=== PATIENT | female | born 1995 | race African-American/Black ===

== ENCOUNTER 2017-06-01 12:48 | Emergency (ER) | payer MEDICAID ==
[2017-06-01 13:15] LABS: HCG URINE NEGATIVE (NEGATIVE)
[2017-06-01 13:19] LABS: APPEARANCE HAZY (CLEAR); BACTERIA MODERATE /hpf (NONE SEEN); BILIRUBIN NEGATIVE (NEGATIVE); COLOR YELLOW (YELLOW); GLUCOSE NEGATIVE (NEGATIVE); KETONE NEGATIVE (NEGATIVE); LEUKOCYTE ESTERASE TRACE (NEGATIVE); MUCUS >1+ /lpf (NONE SEEN); NITRITE NEGATIVE (NEGATIVE); PROTEIN NEGATIVE (NEGATIVE); UROBILINOGEN NORMAL (NORMAL); WHITE CELLS - URINE 0-5 /hpf (0-5)
[2017-06-01 13:22] LABS: BASOPHILS 0.3 % (0-2); EOSINOPHILS 2.2 % (0-7); HEMATOCRIT 38.3 % (36.0-48.0); HEMOGLOBIN 12.8 g/dL (12-16); IMMATURE GRANULOCYTES 0.2 % (0-5); LYMPHOCYTES 36.7 % (15-50); MCH 27.1 pg (26.0-34.0); MCHC 33.4 g/dL (31.0-37.0); MCV 81.1 fL (80.0-100.0); MEAN PLATELET VOLUME 9.9 fL (7.4-10.4); MONOCYTES 7.8 % (2-11); NEUTROPHILS 52.8 % (40-80); PLATELET COUNT 269 10x3/uL (130-400); RBC 4.72 10x6/uL (4.00-5.40); RDW 15.5 % (11.5-14.5); WBC 6.3 10x3/uL (4.8-10.8)
[2017-06-01 13:44] LABS: CALC OSMOLALITY 276 mosm/kg (275-300); CALCIUM 9.1 mg/dL (8.5-10.1); CARBON DIOXIDE 24.9 mmol/L (21.0-32.0); CHLORIDE - SERUM 105 mmol/L (98-107); CREATININE - SERUM 0.7 mg/dL (0.6-1.3); GLUCOSE 105 mg/dL (74-106); POTASSIUM - SERUM 3.8 mmol/L (3.5-5.1); SODIUM 139 mmol/L (136-145); UREA NITROGEN 10 mg/dL (7-18); eGFR NON AFRICAN AMERICAN > 90 mL/min (90-120)
== END 2017-06-01 14:00 | disposition home or self-care (01) ==
LOC: D.ER 12:48
PROVIDERS: Emergency Medicine
DX: R11.10 Vomiting, unspecified (principal); K29.00 Acute gastritis without bleeding; I10 Essential (primary) hypertension; R10.9 Unspecified abdominal pain

== ENCOUNTER 2017-06-07 18:14 | Emergency (ER) | payer MEDICAID ==
[2017-06-07 19:11] LABS: BASOPHILS 0.4 % (0-2); EOSINOPHILS 3.2 % (0-7); HEMATOCRIT 36.6 % (36.0-48.0); LYMPHOCYTES 54.5 % (15-50); MCHC 32.8 g/dL (31.0-37.0); MCV 82.2 fL (80.0-100.0); MEAN PLATELET VOLUME 9.5 fL (7.4-10.4); MONOCYTES 8.1 % (2-11); NEUTROPHILS 33.8 % (40-80); PLATELET COUNT 264 10x3/uL (130-400); RBC 4.45 10x6/uL (4.00-5.40); RDW 15.7 % (11.5-14.5); WBC 7.2 10x3/uL (4.8-10.8)
[2017-06-07 19:50] LABS: HCG SERUM NEGATIVE (NEGATIVE)
[2017-06-07 20:01] LABS: ALBUMIN 3.1 g/dL (3.4-5.0); ALKALINE PHOSPHATASE 56 U/L (46-116); ALT (SGPT) 19 U/L (10-68); AMYLASE - SERUM 35 U/L (25-115); BILIRUBIN - TOTAL 0.33 mg/dL (0.2-1.3); CALC OSMOLALITY 275 mosm/kg (275-300); CALCIUM 8.5 mg/dL (8.5-10.1); CARBON DIOXIDE 24.5 mmol/L (21.0-32.0); CHLORIDE - SERUM 107 mmol/L (98-107); CREATININE - SERUM 0.8 mg/dL (0.6-1.3); GLUCOSE 97 mg/dL (74-106); LIPASE 83 U/L (73-393); POTASSIUM - SERUM 4.1 mmol/L (3.5-5.1); PROTEIN - SERUM 7.1 g/dL (6.4-8.2); SODIUM 139 mmol/L (136-145); UREA NITROGEN 8 mg/dL (7-18); eGFR NON AFRICAN AMERICAN > 90 mL/min (90-120)
[2017-06-07 21:45] LABS: COLOR YELLOW (YELLOW)
[2017-06-07 21:46] LABS: APPEARANCE SLT CLOUDY (CLEAR); BILIRUBIN NEGATIVE (NEGATIVE); GLUCOSE NEGATIVE (NEGATIVE); KETONE NEGATIVE (NEGATIVE); LEUKOCYTE ESTERASE NEGATIVE (NEGATIVE); NITRITE NEGATIVE (NEGATIVE); PROTEIN NEGATIVE (NEGATIVE); UROBILINOGEN NORMAL (NORMAL)
== END 2017-06-07 23:07 | disposition home or self-care (01) ==
LOC: D.ER 18:14
PROVIDERS: Emergency Medicine; Family Medicine
DX: R10.9 Unspecified abdominal pain (principal); K29.00 Acute gastritis without bleeding; I10 Essential (primary) hypertension; R63.0 Anorexia; R11.2 Nausea with vomiting, unspecified; F17.200 Nicotine dependence, unspecified, uncomplicated

== ENCOUNTER 2017-07-06 04:47 | Emergency (ER) | payer MEDICAID | END 2017-07-06 05:45 | disposition home or self-care (01) | LOC: D.ER 04:47 | DX: R10.2 Pelvic and perineal pain (principal); I10 Essential (primary) hypertension; F17.200 Nicotine dependence, unspecified, uncomplicated ==

== ENCOUNTER 2017-07-07 20:40 | Emergency (ER) | payer MEDICAID ==
[2017-07-07 21:36] LABS: HCG URINE NEGATIVE (NEGATIVE)
[2017-07-07 21:43] LABS: APPEARANCE HAZY (CLEAR); BACTERIA MANY /hpf (NONE SEEN); BILIRUBIN NEGATIVE (NEGATIVE); COLOR YELLOW (YELLOW); GLUCOSE NEGATIVE (NEGATIVE); KETONE NEGATIVE (NEGATIVE); LEUKOCYTE ESTERASE TRACE (NEGATIVE); MUCUS >1+ /lpf (NONE SEEN); NITRITE NEGATIVE (NEGATIVE); PROTEIN NEGATIVE (NEGATIVE); SPECIFIC GRAVITY 1.015 (1.005-1.020); WHITE CELLS - URINE 0-5 /hpf (0-5)
[2017-07-07 21:53] LABS: ALBUMIN 2.9 g/dL (3.4-5.0); ALKALINE PHOSPHATASE 59 U/L (46-116); ALT (SGPT) 19 U/L (10-68); BILIRUBIN - TOTAL 0.23 mg/dL (0.2-1.3); CALC OSMOLALITY 283 mosm/kg (275-300); CALCIUM 8.6 mg/dL (8.5-10.1); CARBON DIOXIDE 26.8 mmol/L (21.0-32.0); CHLORIDE - SERUM 108 mmol/L (98-107); CREATININE - SERUM 0.8 mg/dL (0.6-1.3); GLUCOSE 115 mg/dL (74-106); POTASSIUM - SERUM 3.5 mmol/L (3.5-5.1); PROTEIN - SERUM 6.6 g/dL (6.4-8.2); SODIUM 143 mmol/L (136-145); UREA NITROGEN 8 mg/dL (7-18); eGFR NON AFRICAN AMERICAN > 90 mL/min (90-120)
[2017-07-07 22:14] LABS: BASOPHILS 0.3 % (0-2); EOSINOPHILS 4.6 % (0-7); HEMOGLOBIN 12.1 g/dL (12-16); IMMATURE GRANULOCYTES 0.1 % (0-5); LYMPHOCYTES 44.1 % (15-50); MCH 27.2 pg (26.0-34.0); MCHC 32.7 g/dL (31.0-37.0); MCV 83.1 fL (80.0-100.0); MONOCYTES 7.4 % (2-11); NEUTROPHILS 43.5 % (40-80); PLATELET COUNT 216 10x3/uL (130-400); RBC 4.45 10x6/uL (4.00-5.40); WBC 7.6 10x3/uL (4.8-10.8)
== END 2017-07-07 22:16 | disposition home or self-care (01) ==
LOC: D.ER 20:40
PROVIDERS: Emergency Medicine
DX: N73.0 Acute parametritis and pelvic cellulitis (principal); F17.200 Nicotine dependence, unspecified, uncomplicated; I10 Essential (primary) hypertension

== ENCOUNTER 2017-10-03 17:00 | Emergency (ER) | payer MEDICAID ==
[2017-10-03 17:43] LABS: HEMATOCRIT 38.2 % (36.0-48.0); HEMOGLOBIN 12.7 g/dL (12-16); MCHC 33.2 g/dL (31.0-37.0); MCV 81.1 fL (80.0-100.0); MEAN PLATELET VOLUME 9.3 fL (7.4-10.4); PLATELET COUNT 245 10x3/uL (130-400); RBC 4.71 10x6/uL (4.00-5.40); RDW 15.1 % (11.5-14.5); WBC 6.5 10x3/uL (4.8-10.8)
[2017-10-03 18:00] LABS: ALBUMIN 3.2 g/dL (3.4-5.0); ALKALINE PHOSPHATASE 62 U/L (46-116); ALT (SGPT) 18 U/L (10-68); BILIRUBIN - TOTAL 0.16 mg/dL (0.2-1.3); CALC OSMOLALITY 273 mosm/kg (275-300); CALCIUM 8.8 mg/dL (8.5-10.1); CARBON DIOXIDE 25.6 mmol/L (21.0-32.0); CHLORIDE - SERUM 105 mmol/L (98-107); CREATININE - SERUM 0.9 mg/dL (0.6-1.3); GLUCOSE 109 mg/dL (74-106); POTASSIUM - SERUM 3.9 mmol/L (3.5-5.1); PROTEIN - SERUM 7.3 g/dL (6.4-8.2); SODIUM 137 mmol/L (136-145); UREA NITROGEN 10 mg/dL (7-18); eGFR NON AFRICAN AMERICAN 81 mL/min (90-120)
[2017-10-03 18:06] LABS: HCG SERUM NEGATIVE (NEGATIVE)
[2017-10-03 18:15] LABS: EOSINOPHILS 6 % (0-7); LYMPHOCYTES 58 % (15-50); MONOCYTES 1 % (2-11); NEUTROPHILS 35 % (40-80); PLATELET ESTIMATE NORMAL
[2017-10-03 19:28] LABS: APPEARANCE HAZY (CLEAR); BILIRUBIN NEGATIVE (NEGATIVE); COLOR YELLOW (YELLOW); GLUCOSE NEGATIVE (NEGATIVE); KETONE NEGATIVE (NEGATIVE); NITRITE NEGATIVE (NEGATIVE); PROTEIN NEGATIVE (NEGATIVE); UROBILINOGEN NORMAL (NORMAL)
[2017-10-03 19:29] LABS: BACTERIA FEW /hpf (NONE SEEN); MUCUS <1+ /lpf (NONE SEEN); RED CELLS - URINE OCC /hpf (0-5); WHITE CELLS - URINE 0-5 /hpf (0-5)
== END 2017-10-03 20:07 | disposition home or self-care (01) ==
LOC: D.ER 17:00
PROVIDERS: Emergency Medicine
DX: N39.0 Urinary tract infection, site not specified (principal); Z20.828 Contact with and (suspected) exposure to other viral communicable diseases

== ENCOUNTER 2017-10-18 20:26 | Emergency (ER) | payer MEDICAID ==
[2017-10-18 21:03] LABS: APPEARANCE HAZY (CLEAR); BILIRUBIN NEGATIVE (NEGATIVE); COLOR YELLOW (YELLOW); GLUCOSE NEGATIVE (NEGATIVE); KETONE NEGATIVE (NEGATIVE); NITRITE NEGATIVE (NEGATIVE); PROTEIN NEGATIVE (NEGATIVE); UROBILINOGEN NORMAL (NORMAL)
[2017-10-18 21:05] LABS: AMORPHOUS SEDIMENT <1+ /lpf (NONE SEEN); BACTERIA MODERATE /hpf (NONE SEEN); MUCUS >1+ /lpf (NONE SEEN); RED CELLS - URINE OCC /hpf (0-5)
[2017-10-18 23:20] LABS: HCG URINE NEGATIVE (NEGATIVE)
== END 2017-10-19 00:18 | disposition home or self-care (01) ==
LOC: D.ER 20:26
PROVIDERS: Emergency Medicine; Physician Assistant
DX: R10.2 Pelvic and perineal pain (principal); R30.0 Dysuria; N89.8 Other specified noninflammatory disorders of vagina; F17.200 Nicotine dependence, unspecified, uncomplicated

== ENCOUNTER 2017-10-26 21:44 | Emergency (ER) | payer MEDICAID | END 2017-10-26 23:12 | disposition home or self-care (01) | LOC: D.ER 21:44 | DX: S46.912A Strain of unspecified muscle, fascia and tendon at shoulder and upper arm level, left arm, initial encounter (principal); X50.9XXA Other and unspecified overexertion or strenuous movements or postures, initial encounter; Y93.89 Activity, other specified; Y92.019 Unspecified place in single-family (private) house as the place of occurrence of the external cause ==

== ENCOUNTER 2017-11-12 18:53 | Emergency (ER) | payer MEDICAID ==
[2017-11-12 19:25] LABS: APPEARANCE HAZY (CLEAR); BILIRUBIN NEGATIVE (NEGATIVE); COLOR YELLOW (YELLOW); GLUCOSE NEGATIVE (NEGATIVE); KETONE NEGATIVE (NEGATIVE); NITRITE NEGATIVE (NEGATIVE); PROTEIN NEGATIVE (NEGATIVE); UROBILINOGEN NORMAL (NORMAL)
== END 2017-11-12 20:48 | disposition home or self-care (01) ==
LOC: D.ER 18:53
PROVIDERS: Family Medicine
DX: N76.0 Acute vaginitis (principal); F17.200 Nicotine dependence, unspecified, uncomplicated

== ENCOUNTER 2017-12-21 09:15 | Emergency (ER) | payer MEDICAID ==
[2017-12-21 09:49] LABS: BASOPHILS 0.2 % (0-2); EOSINOPHILS 2.1 % (0-7); HEMATOCRIT 38.1 % (36.0-48.0); HEMOGLOBIN 12.6 g/dL (12-16); IMMATURE GRANULOCYTES 0.1 % (0-5); LYMPHOCYTES 33.9 % (15-50); MCH 27.1 pg (26.0-34.0); MCHC 33.1 g/dL (31.0-37.0); MCV 81.9 fL (80.0-100.0); MEAN PLATELET VOLUME 9.9 fL (7.4-10.4); MONOCYTES 6.7 % (2-11); PLATELET COUNT 259 10x3/uL (130-400); RBC 4.65 10x6/uL (4.00-5.40); RDW 15.2 % (11.5-14.5); WBC 8.6 10x3/uL (4.8-10.8)
[2017-12-21 11:39] LABS: HCG URINE NEGATIVE (NEGATIVE)
[2017-12-21 11:40] LABS: APPEARANCE CLEAR (CLEAR); BILIRUBIN NEGATIVE (NEGATIVE); COLOR YELLOW (YELLOW); GLUCOSE NEGATIVE (NEGATIVE); KETONE NEGATIVE (NEGATIVE); NITRITE NEGATIVE (NEGATIVE); PROTEIN NEGATIVE (NEGATIVE); SPECIFIC GRAVITY 1.015 (1.005-1.020); UROBILINOGEN NORMAL (NORMAL)
== END 2017-12-21 12:14 | disposition home or self-care (01) ==
LOC: D.ER 09:15
PROVIDERS: Emergency Medicine; Physician Assistant
DX: F43.22 Adjustment disorder with anxiety (principal); R10.84 Generalized abdominal pain; M79.1 Myalgia; F17.200 Nicotine dependence, unspecified, uncomplicated

== ENCOUNTER 2017-12-27 11:34 | Emergency (ER) | payer MEDICAID | END 2017-12-27 13:50 | disposition left against medical advice (07) | LOC: D.ER 11:34 | DX: R10.30 Lower abdominal pain, unspecified (principal) ==

== ENCOUNTER 2018-05-04 17:40 | Emergency (ER) | payer MEDICAID ==
[~2018-05-04] VITALS: Ht 162.6 cm; Wt 95.5 kg
[2018-05-04 17:51] VITALS: BP 119/72; Ht 162.6 cm; Wt 95.5 kg
[2018-05-04 18:59] LABS: BASOPHILS 0.4 % (0-2); EOSINOPHILS 1.7 % (0-7); HEMATOCRIT 36.8 % (36.0-48.0); HEMOGLOBIN 12.4 g/dL (12-16); IMMATURE GRANULOCYTES 0.1 % (0-5); LYMPHOCYTES 46.2 % (15-50); MCH 27.8 pg (26.0-34.0); MCHC 33.7 g/dL (31.0-37.0); MCV 82.5 fL (80.0-100.0); MEAN PLATELET VOLUME 9.8 fL (7.4-10.4); MONOCYTES 7.1 % (2-11); NEUTROPHILS 44.5 % (40-80); PLATELET COUNT 237 10x3/uL (130-400); RBC 4.46 10x6/uL (4.00-5.40)
[2018-05-04 19:06] LABS: APPEARANCE CLEAR (CLEAR); BILIRUBIN NEGATIVE (NEGATIVE); COLOR YELLOW (YELLOW); GLUCOSE NEGATIVE (NEGATIVE); KETONE NEGATIVE (NEGATIVE); NITRITE NEGATIVE (NEGATIVE); PROTEIN NEGATIVE (NEGATIVE); SPECIFIC GRAVITY 1.015 (1.005-1.020); UROBILINOGEN NORMAL (NORMAL)
[2018-05-04 19:09] LABS: WHITE CELLS - URINE 0-5 /hpf (0-5)
[2018-05-04 19:11] LABS: BACTERIA MANY /hpf (NONE SEEN); RED CELLS - URINE 0-5 /hpf (0-5)
[2018-05-04 19:17] LABS: ALBUMIN 3.2 g/dL (3.4-5.0); ALKALINE PHOSPHATASE 67 U/L (46-116); ALT (SGPT) 17 U/L (10-68); BILIRUBIN - TOTAL 0.18 mg/dL (0.2-1.3); CALC OSMOLALITY 275 mosm/kg (275-300); CARBON DIOXIDE 26.1 mmol/L (21.0-32.0); CHLORIDE - SERUM 106 mmol/L (98-107); CREATININE - SERUM 0.9 mg/dL (0.6-1.3); GLUCOSE 105 mg/dL (74-106); POTASSIUM - SERUM 3.8 mmol/L (3.5-5.1); PROTEIN - SERUM 7.3 g/dL (6.4-8.2); SODIUM 138 mmol/L (136-145); UREA NITROGEN 12 mg/dL (7-18); eGFR NON AFRICAN AMERICAN 81 mL/min (90-120)
== END 2018-05-04 21:34 | disposition left against medical advice (07) ==
LOC: D.ER 17:40
PROVIDERS: Family Medicine
DX: R51 Headache (principal)

== ENCOUNTER 2018-05-11 17:25 | Emergency (ER) | payer MEDICAID ==
[~2018-05-11] VITALS: Ht 162.6 cm; Wt 95.5 kg
[2018-05-11 17:29] VITALS: Ht 162.6 cm; Wt 95.5 kg
[2018-05-11 17:57] LABS: APPEARANCE HAZY (CLEAR); COLOR YELLOW (YELLOW); GLUCOSE NEGATIVE (NEGATIVE); KETONE NEGATIVE (NEGATIVE); NITRITE POSITIVE (NEGATIVE); PROTEIN NEGATIVE (NEGATIVE); UROBILINOGEN NORMAL (NORMAL)
[2018-05-11 17:58] LABS: BILIRUBIN NEGATIVE (NEGATIVE); RED CELLS - URINE 0-5 /hpf (0-5); WHITE CELLS - URINE 0-5 /hpf (0-5)
[2018-05-11 17:59] LABS: BACTERIA MANY /hpf (NONE SEEN)
[2018-05-11 18:08] LABS: HCG URINE NEGATIVE (NEGATIVE)
[2018-05-11 18:08] LABS: BASOPHILS 0.2 % (0-2); EOSINOPHILS 1.1 % (0-7); HEMATOCRIT 35.5 % (36.0-48.0); HEMOGLOBIN 11.9 g/dL (12-16); IMMATURE GRANULOCYTES 0.1 % (0-5); LYMPHOCYTES 44.6 % (15-50); MCH 27.6 pg (26.0-34.0); MCHC 33.5 g/dL (31.0-37.0); MCV 82.4 fL (80.0-100.0); MEAN PLATELET VOLUME 9.9 fL (7.4-10.4); MONOCYTES 7.1 % (2-11); NEUTROPHILS 46.9 % (40-80); PLATELET COUNT 240 10x3/uL (130-400); RBC 4.31 10x6/uL (4.00-5.40); WBC 8.6 10x3/uL (4.8-10.8)
[2018-05-11 18:23] LABS: ALKALINE PHOSPHATASE 60 U/L (46-116); ALT (SGPT) 16 U/L (10-68); BILIRUBIN - TOTAL 0.18 mg/dL (0.2-1.3); CALC OSMOLALITY 273 mosm/kg (275-300); CALCIUM 8.7 mg/dL (8.5-10.1); CARBON DIOXIDE 27.4 mmol/L (21.0-32.0); CHLORIDE - SERUM 106 mmol/L (98-107); CREATININE - SERUM 0.8 mg/dL (0.6-1.3); GLUCOSE 96 mg/dL (74-106); POTASSIUM - SERUM 3.6 mmol/L (3.5-5.1); PROTEIN - SERUM 6.8 g/dL (6.4-8.2); SODIUM 138 mmol/L (136-145); UREA NITROGEN 8 mg/dL (7-18); eGFR NON AFRICAN AMERICAN > 90 mL/min (90-120)
[2018-05-11] MEDS ORDERED: MACROBID100 MG PO (18:49)
[2018-05-11] MEDS ORDERED: ZOFRAN4 MG PO (18:49)
[2018-05-11 19:20] VITALS: BP 122/78
== END 2018-05-11 19:20 | disposition home or self-care (01) ==
LOC: D.ER 17:25
PROVIDERS: Emergency Medicine
DX: N39.0 Urinary tract infection, site not specified (principal); I10 Essential (primary) hypertension; F17.200 Nicotine dependence, unspecified, uncomplicated

== ENCOUNTER 2018-11-02 10:40 | Emergency (ER) | payer MEDICAID ==
[~2018-11-02] VITALS: Ht 162.6 cm; Wt 100.0 kg
[~2018-11-02 10:40] MED LIST: MACROBID100 MG PO; ZOFRAN4 MG PO
[2018-11-02 10:41] VITALS: Ht 162.6 cm; Wt 100.0 kg
[2018-11-02 11:01] LABS: BASOPHILS 0.4 % (0-2); HEMATOCRIT 37.6 % (36.0-48.0); HEMOGLOBIN 12.6 g/dL (12-16); IMMATURE GRANULOCYTES 0.1 % (0-5); LYMPHOCYTES 29.6 % (15-50); MCH 27.9 pg (26.0-34.0); MCHC 33.5 g/dL (31.0-37.0); MCV 83.2 fL (80.0-100.0); MEAN PLATELET VOLUME 9.6 fL (7.4-10.4); MONOCYTES 9.5 % (2-11); NEUTROPHILS 58.4 % (40-80); PLATELET COUNT 261 10x3/uL (130-400); RBC 4.52 10x6/uL (4.00-5.40); RDW 14.8 % (11.5-14.5); WBC 8.4 10x3/uL (4.8-10.8)
[2018-11-02 11:17] LABS: ALKALINE PHOSPHATASE 57 U/L (46-116); ALT (SGPT) 18 U/L (10-68); BILIRUBIN - TOTAL 0.28 mg/dL (0.2-1.3); CALC OSMOLALITY 277 mosm/kg (275-300); CARBON DIOXIDE 24.1 mmol/L (21.0-32.0); CHLORIDE - SERUM 106 mmol/L (98-107); CREATININE - SERUM 0.7 mg/dL (0.6-1.3); GLUCOSE 97 mg/dL (74-106); POTASSIUM - SERUM 3.8 mmol/L (3.5-5.1); PROTEIN - SERUM 7.3 g/dL (6.4-8.2); SODIUM 140 mmol/L (136-145); UREA NITROGEN 9 mg/dL (7-18); eGFR NON AFRICAN AMERICAN > 90 mL/min (90-120)
[2018-11-02 12:27] VITALS: BP 125/77
== END 2018-11-02 12:28 | disposition home or self-care (01) ==
LOC: D.ER 10:40
PROVIDERS: Family Medicine
DX: R50.9 Fever, unspecified (principal); R05 Cough; J02.0 Streptococcal pharyngitis; R51 Headache; M79.18 Myalgia, other site; I10 Essential (primary) hypertension; F17.200 Nicotine dependence, unspecified, uncomplicated

== ENCOUNTER 2018-11-30 13:17 | Emergency (ER) | payer MEDICAID ==
[~2018-11-30] VITALS: Ht 162.6 cm; Wt 95.5 kg
[2018-11-30 13:28] VITALS: Ht 162.6 cm; Wt 95.5 kg
[2018-11-30 13:56] LABS: HCG URINE NEGATIVE (NEGATIVE)
[2018-11-30 13:59] LABS: APPEARANCE HAZY (CLEAR); BILIRUBIN NEGATIVE (NEGATIVE); COLOR YELLOW (YELLOW); GLUCOSE NEGATIVE (NEGATIVE); KETONE NEGATIVE (NEGATIVE); NITRITE NEGATIVE (NEGATIVE); PROTEIN NEGATIVE (NEGATIVE); SPECIFIC GRAVITY 1.025 (1.005-1.020)
[2018-11-30 14:03] LABS: BACTERIA MANY /hpf (NONE SEEN); EPITHELIAL CELLS 0-5 /hpf (0-5); MUCUS >1+ /lpf (NONE SEEN); RED CELLS - URINE 0-5 /hpf (0-5); WHITE CELLS - URINE RARE /hpf (0-5)
[2018-11-30 15:40] VITALS: BP 110/73
== END 2018-11-30 15:40 | disposition home or self-care (01) ==
LOC: D.ER 13:17
PROVIDERS: Emergency Medicine
DX: R30.0 Dysuria (principal); N76.0 Acute vaginitis; B96.89 Other specified bacterial agents as the cause of diseases classified elsewhere; N94.89 Other specified conditions associated with female genital organs and menstrual cycle; R10.2 Pelvic and perineal pain

== ENCOUNTER 2019-02-28 18:16 | Emergency (ER) | payer MEDICAID ==
[~2019-02-28] VITALS: Ht 162.6 cm; Wt 95.5 kg
[2019-02-28 18:36] VITALS: Ht 162.6 cm; Wt 95.5 kg
[2019-02-28 19:08] LABS: BASOPHILS 0.3 % (0-2); EOSINOPHILS 1.7 % (0-7); HEMATOCRIT 37.2 % (36.0-48.0); HEMOGLOBIN 12.6 g/dL (12-16); IMMATURE GRANULOCYTES 0.1 % (0-5); LYMPHOCYTES 48.3 % (15-50); MCH 28.1 pg (26.0-34.0); MCHC 33.9 g/dL (31.0-37.0); MEAN PLATELET VOLUME 9.2 fL (7.4-10.4); MONOCYTES 7.9 % (2-11); NEUTROPHILS 41.7 % (40-80); PLATELET COUNT 256 10x3/uL (130-400); RBC 4.48 10x6/uL (4.00-5.40); RDW 15.1 % (11.5-14.5); WBC 7.3 10x3/uL (4.8-10.8)
[2019-02-28 19:13] LABS: APPEARANCE CLEAR (CLEAR); BILIRUBIN NEGATIVE (NEGATIVE); COLOR YELLOW (YELLOW); GLUCOSE NEGATIVE (NEGATIVE); KETONE NEGATIVE (NEGATIVE); NITRITE NEGATIVE (NEGATIVE); PROTEIN NEGATIVE (NEGATIVE); UROBILINOGEN NORMAL (NORMAL)
[2019-02-28 19:25] LABS: ALBUMIN 2.7 g/dL (3.4-5.0); ALKALINE PHOSPHATASE 50 U/L (46-116); ALT (SGPT) 20 U/L (10-68); CALC OSMOLALITY 275 mosm/kg (275-300); CALCIUM 8.8 mg/dL (8.5-10.1); CHLORIDE - SERUM 107 mmol/L (98-107); CREATININE - SERUM 0.8 mg/dL (0.6-1.3); GLUCOSE 83 mg/dL (74-106); POTASSIUM - SERUM 3.8 mmol/L (3.5-5.1); PROTEIN - SERUM 6.1 g/dL (6.4-8.2); SODIUM 140 mmol/L (136-145); UREA NITROGEN 7 mg/dL (7-18); eGFR NON AFRICAN AMERICAN > 90 mL/min (90-120)
[2019-02-28 19:37] LABS: HCG SERUM POSITIVE (NEGATIVE)
[2019-02-28 22:11] VITALS: BP 122/73
== END 2019-02-28 22:11 | disposition home or self-care (01) ==
LOC: D.ER 18:16
PROVIDERS: Emergency Medicine
DX: Z33.1 Pregnant state, incidental (principal); R11.0 Nausea

== ENCOUNTER 2019-03-19 15:30 | Emergency (ER) | payer MEDICAID ==
[~2019-03-19] VITALS: Ht 162.6 cm; Wt 95.5 kg
[2019-03-19 15:31] VITALS: Ht 162.6 cm; Wt 95.5 kg
[2019-03-19 15:53] LABS: BASOPHILS 0.2 % (0-2); EOSINOPHILS 0.8 % (0-7); HEMATOCRIT 36.3 % (36.0-48.0); HEMOGLOBIN 12.5 g/dL (12-16); IMMATURE GRANULOCYTES 0.3 % (0-5); LYMPHOCYTES 41.3 % (15-50); MCH 28.3 pg (26.0-34.0); MCHC 34.4 g/dL (31.0-37.0); MCV 82.1 fL (80.0-100.0); MEAN PLATELET VOLUME 9.5 fL (7.4-10.4); MONOCYTES 9.9 % (2-11); NEUTROPHILS 47.5 % (40-80); PLATELET COUNT 237 10x3/uL (130-400); RBC 4.42 10x6/uL (4.00-5.40); RDW 14.2 % (11.5-14.5); WBC 6.6 10x3/uL (4.8-10.8)
[2019-03-19 16:34] LABS: ALBUMIN 2.8 g/dL (3.4-5.0); ALKALINE PHOSPHATASE 41 U/L (46-116); ALT (SGPT) 17 U/L (10-68); BILIRUBIN - TOTAL 0.21 mg/dL (0.2-1.3); CALCIUM 8.7 mg/dL (8.5-10.1); CARBON DIOXIDE 18.9 mmol/L (21.0-32.0); CHLORIDE - SERUM 105 mmol/L (98-107); CREATININE - SERUM 0.8 mg/dL (0.6-1.3); HCG - QUANTITATIVE (MATERNAL) 146873 mIU/mL; PROTEIN - SERUM 6.4 g/dL (6.4-8.2); SODIUM 136 mmol/L (136-145); UREA NITROGEN 7 mg/dL (7-18); eGFR NON AFRICAN AMERICAN > 90 mL/min (90-120)
[2019-03-19 16:41] LABS: CALC OSMOLALITY 271 mosm/kg (275-300); GLUCOSE 127 mg/dL (74-106)
[2019-03-19 16:43] LABS: POTASSIUM - SERUM 2.8 mmol/L (3.5-5.1)
[2019-03-19 17:00] LABS: APPEARANCE HAZY (CLEAR); BILIRUBIN NEGATIVE (NEGATIVE); COLOR YELLOW (YELLOW); GLUCOSE NEGATIVE (NEGATIVE); KETONE NEGATIVE (NEGATIVE); NITRITE NEGATIVE (NEGATIVE); PROTEIN NEGATIVE (NEGATIVE); SPECIFIC GRAVITY 1.015 (1.005-1.020); UROBILINOGEN NORMAL (NORMAL)
[2019-03-19 17:01] LABS: BACTERIA MANY /hpf (NONE SEEN); MUCUS <1+ /lpf (NONE SEEN); RED CELLS - URINE 0-5 /hpf (0-5); WHITE CELLS - URINE 0-5 /hpf (0-5)
[2019-03-19] MEDS ORDERED: ONDANSETRON8 MG/TAB PO (17:50)
[2019-03-19] MEDS ORDERED: FLAGYL500 MG PO (17:53)
[2019-03-19 18:06] VITALS: BP 118/76
== END 2019-03-19 18:07 | disposition home or self-care (01) ==
LOC: D.ER 15:30
PROVIDERS: Family Medicine
DX: O26.891 Other specified pregnancy related conditions, first trimester (principal); Z3A.09 9 weeks gestation of pregnancy; F41.9 Anxiety disorder, unspecified; E87.6 Hypokalemia

== ENCOUNTER 2019-07-07 17:35 | Outpatient (CLI) | payer MEDICAID ==
[2019-03-19 15:31] VITALS: BMI 36.1
[~2019-07-07 17:35] MED LIST changes: +FLAGYL500 MG PO; +ONDANSETRON8 MG/TAB PO
[2019-07-07 18:32] LABS: APPEARANCE CLEAR (CLEAR); BILIRUBIN NEGATIVE (NEGATIVE); COLOR YELLOW (YELLOW); GLUCOSE NEGATIVE (NEGATIVE); KETONE NEGATIVE (NEGATIVE); NITRITE NEGATIVE (NEGATIVE); PROTEIN NEGATIVE (NEGATIVE); SPECIFIC GRAVITY 1.015 (1.005-1.020)
== END 2019-07-07 18:50 ==
LOC: D.LDO 17:35
PROVIDERS: ATTEND Obstetrics & Gynecology
DX: O26.892 Other specified pregnancy related conditions, second trimester (principal); Z3A.24 24 weeks gestation of pregnancy; J00 Acute nasopharyngitis [common cold]

== ENCOUNTER 2019-08-04 23:59 | Outpatient (CLI) | payer MEDICAID ==
[2019-03-19 15:31] VITALS: BMI 36.1
[2019-08-05 01:29] LABS: APPEARANCE CLEAR (CLEAR); BILIRUBIN NEGATIVE (NEGATIVE); COLOR YELLOW (YELLOW); GLUCOSE NEGATIVE (NEGATIVE); KETONE NEGATIVE (NEGATIVE); NITRITE NEGATIVE (NEGATIVE); PROTEIN NEGATIVE (NEGATIVE); SPECIFIC GRAVITY 1.005 (1.005-1.020); UROBILINOGEN NORMAL (NORMAL)
[2019-09-29 19:37] VITALS: BMI 32.7
== END 2019-08-05 03:20 | disposition left against medical advice (07) ==
LOC: D.LD 23:59 → D.LDO 23:59
PROVIDERS: ATTEND Student in an Organized Health Care Education/Training Program
DX: O26.893 Other specified pregnancy related conditions, third trimester (principal); R10.9 Unspecified abdominal pain; Z3A.28 28 weeks gestation of pregnancy

== ENCOUNTER 2019-08-26 23:10 | Inpatient (IN) | payer MEDICAID ==
[2019-03-19 15:31] VITALS: BMI 36.1
[2019-08-27 00:21] LABS: UDS - AMPHET NEGATIVE QUAL (NEGATIVE); UDS - BARB NEGATIVE QUAL (NEGATIVE); UDS - BENZO NEGATIVE QUAL (NEGATIVE); UDS - COCAINE NEGATIVE QUAL (NEGATIVE); UDS - OPIATE NEGATIVE QUAL (NEGATIVE); UDS - PCP NEGATIVE QUAL (NEGATIVE); UDS - THC POSITIVE QUAL (NEGATIVE)
[2019-08-27 00:22] LABS: APPEARANCE SL CLDY (CLEAR); BILIRUBIN NEGATIVE (NEGATIVE); COLOR YELLOW (YELLOW); GLUCOSE NEGATIVE (NEGATIVE); KETONE NEGATIVE (NEGATIVE); NITRITE NEGATIVE (NEGATIVE); PROTEIN NEGATIVE (NEGATIVE); SPECIFIC GRAVITY 1.005 (1.005-1.020); UROBILINOGEN NORMAL (NORMAL)
[2019-08-27 00:24] LABS: BACTERIA MODERATE /hpf (NEGATIVE); EPITHELIAL CELLS 0-5 /hpf (0-5); RED CELLS - URINE 0-5 /hpf (0-5)
[2019-08-27 03:35] LABS: BASOPHILS 0.1 % (0-2); EOSINOPHILS 1.3 % (0-7); HEMATOCRIT 28.9 % (36.0-48.0); HEMOGLOBIN 9.4 g/dL (12-16); IMMATURE GRANULOCYTES 0.2 % (0-5); LYMPHOCYTES 30.5 % (15-50); MCH 27.3 pg (26.0-34.0); MCHC 32.5 g/dL (31.0-37.0); MONOCYTES 8.2 % (2-11); NEUTROPHILS 59.7 % (40-80); PLATELET COUNT 265 10x3/uL (130-400); RBC 3.44 10x6/uL (4.00-5.40); RDW 15.4 % (11.5-14.5); WBC 12.4 10x3/uL (4.8-10.8)
[2019-08-27 03:44] LABS: CALC OSMOLALITY 274 mosm/kg (275-300); CALCIUM 8.7 mg/dL (8.5-10.1); CARBON DIOXIDE 21.6 mmol/L (21.0-32.0); CHLORIDE - SERUM 108 mmol/L (98-107); CREATININE - SERUM 0.5 mg/dL (0.6-1.3); GLUCOSE 92 mg/dL (74-106); POTASSIUM - SERUM 3.3 mmol/L (3.5-5.1); SODIUM 139 mmol/L (136-145); UREA NITROGEN 4 mg/dL (7-18); eGFR NON AFRICAN AMERICAN > 90 mL/min (90-120)
[2019-08-27 03:50] LABS: ALBUMIN 2.3 g/dL (3.4-5.0); ALKALINE PHOSPHATASE 116 U/L (46-116); ALT (SGPT) 15 U/L (10-68); AMYLASE - SERUM 40 U/L (25-115); BILIRUBIN - TOTAL 0.24 mg/dL (0.2-1.3); LIPASE 59 U/L (73-393); PROTEIN - SERUM 6.3 g/dL (6.4-8.2)
[2019-09-29 19:37] VITALS: BMI 32.7
== END 2019-08-27 08:00 | disposition home or self-care (01) | DRG 832 ==
LOC: D.LD 23:10
PROVIDERS: ADMIT Student in an Organized Health Care Education/Training Program; ATTEND Student in an Organized Health Care Education/Training Program
DX: O21.2 Late vomiting of pregnancy (principal); O47.03 False labor before 37 completed weeks of gestation, third trimester; Z3A.31 31 weeks gestation of pregnancy; Z37.0 Single live birth

== ENCOUNTER 2019-09-18 10:42 | Inpatient (IN) | payer MEDICAID ==
[~2019-09-18] VITALS: Ht 162.6 cm; Wt 99.8 kg
[2019-09-18] MEDS ORDERED: REGLAN10 MG PO (10:48)
[2019-09-18 11:44] LABS: HEMOGLOBIN 9.4 g/dL (12-16); MCH 27.3 pg (26.0-34.0); MCHC 32.4 g/dL (31.0-37.0); MCV 84.3 fL (80.0-100.0); MEAN PLATELET VOLUME 9.1 fL (7.4-10.4); RBC 3.44 10x6/uL (4.00-5.40); RDW 15.7 % (11.5-14.5); WBC 11.2 10x3/uL (4.8-10.8)
[2019-09-18 12:28] LABS: APPEARANCE CLOUDY (CLEAR); BACTERIA MODERATE /hpf (NEGATIVE); BILIRUBIN NEGATIVE (NEGATIVE); COLOR YELLOW (YELLOW); EPITHELIAL CELLS 0-5 /hpf (0-5); GLUCOSE NEGATIVE (NEGATIVE); KETONE SMALL mg/dL (NEGATIVE); MUCUS <1+ /lpf (NONE SEEN); NITRITE NEGATIVE (NEGATIVE); PROTEIN NEGATIVE (NEGATIVE); RED CELLS - URINE RARE /hpf (0-5); SPECIFIC GRAVITY 1.005 (1.005-1.020); WHITE CELLS - URINE 0-5 /hpf (NEGATIVE)
[2019-09-18 12:57] VITALS: BP 122/76; Ht 162.6 cm; Wt 99.8 kg
[2019-09-18 13:15] LABS: UDS - AMPHET NEGATIVE QUAL (NEGATIVE); UDS - BARB NEGATIVE QUAL (NEGATIVE); UDS - BENZO NEGATIVE QUAL (NEGATIVE); UDS - COCAINE NEGATIVE QUAL (NEGATIVE); UDS - OPIATE NEGATIVE QUAL (NEGATIVE); UDS - PCP NEGATIVE QUAL (NEGATIVE); UDS - THC POSITIVE QUAL (NEGATIVE)
--- NOTE | 2019-09-18 15:03 | NUR ---
1451 VIABLE BABY GIRL DELIVERED, CORD BLOOD AND GASES DONE AND SENT OUT, ELIE.
[2019-09-18 16:56] VITALS: BP 116/84
--- NOTE | 2019-09-18 17:00 | NUR ---
REC'D PT BACK FROM RECOVERY POST OP . PT AA&O X4. PT HAS A PIV TO RT WRIST/FOREARM AREA W/NS W/20 UNITS PITOCIN INFUSING AT SLOW RATE VIA GRAVITY. IV LINE PLACED ON PUMP TP INFUSE AT 125ML/HR. REPORT RECIEVED FROM MILY RECOVERY NURSE. POSTOP VITALS OBTAINED. SERIAL BP STARTED. PT HAD A REPEAT . LOW TRANSVERSE INCISION C/D/I W/LARGE ABD DRESSING. NO DRAINAGE NOTED. CONROY CATH IN PLACE AND DRAINING VIA GRAVITY AT BEDSIDE.SCD WRAPS IN PLACED BILATERALLY. CONNECTED TO PUMP. PUMP IS ON AND FUNCTIONING. POC DISCUSSED W/PT AND PAIN MEDICATION OF STUDIO RECEPTIONIST TEACHING PROVIDED. FUNDUS FIRM,U/U,MIDLINE, SMALL LOCHIA NOTED.
[2019-09-18 17:30] VITALS: BP 120/73; BP 128/65
--- NOTE | 2019-09-18 17:30 | NUR ---
FUNDUS FIRM,U/U, SMALL RUBRA LOCHIA NOTED. APPROX 130ML URINE DUMPED FROM UROMETER INTO CONROY BAG. LEMON-TRIBAL SODA SERVED. ATTEMPT MADE TO SALINE FLUSH 2ND IV TO LEFT HAND. SITE OCCLUDED. PLAN FOR D/C OF SALINE LOCK.
[2019-09-18 17:45] VITALS: BP 118/76
--- NOTE | 2019-09-18 17:55 | NUR ---
PT HAS TOLERATED LEMON-PASS[place]QUODDY P[place]AS[place] POINT SODA AND REQUEST A SECOND. 2ND LEMON-[place] SODA SERVED. DR ROSARIO AT BEDSIDE SPEAKING W/PT. PT HAS DIRECTOR RETAIL BRAND DEVELOPMENT BUTTON AT HER SIDE AND IS PUSHING IT EVERY 10 MINS. ATTEMPTS TO ASSESS PAIN. PT UNABLE TO GIVE A NUMERICAL RESPONSE. PT IS DIFFICULT TO MEASURE PAIN USING FLACC SCALE.
[2019-09-18 18:00] VITALS: BP 113/77
--- NOTE | 2019-09-18 18:04 | NUR ---
FUNDUS FIRM,U/U, SCANT LOCHIA NOTED. PT REPORTS PAIN LEVEL IS 9/10. PT HAS PUSHED TO PHYSICIAN ASSISTANT PRIMARY CARE BUTTON X 4. REPORTS THE PAIN MEDICATION IS NOT HELPING. REQUEST DR MEHTA BE CONTACTED TO SEE IF SHE WOULD ORDER SOMETHING DIFFERENT. FRESH LARGE ICE CAP PLACED TO ABD.
--- NOTE | 2019-09-18 18:39 | NUR ---
DR MEHTA ON THE UNIT. REPORT GIVEN OF PT'S REPORT THAT CURRENT DILAUDID TORSION SPRING COILING MACHINE SETTER IS NOT CONTROLLING HER PAIN. MD DOES NOT WANT TO CHANGE ORDER AT THIS TIME. ORDER REC'D MAY ADMIN 0.2MG BOLUS IF NEEDED X 1.
--- NOTE | 2019-09-18 18:41 | NUR ---
INCENTIVE CHRISTIANNE USED. PT BREATHING DEEP. STATES THAT PAIN MED IS WORKING BETTER AT THIS TIME. ABD DRESSING CD&I. SCANT LOCHIA NOTED ON PAD.
[2019-09-18 20:00] VITALS: BP 108/74
--- NOTE | 2019-09-18 20:00 | NUR ---
PT IS RESTING QUIETLY IN BED. SHE HAS NO C/O AT THIS TIME. HER FUNDUS WAS MASSAGED AND IS FIRM. SMALL TO MOD BLEEDING NOTED ON THE PAD. HER INCISION HAS A WHITE DRESSING THAT HAS NO DRAINAGE. SHE WAS INSTRUCTED ON USE OF THE INSENTIVE SPIROMETER AND PERFORMED THIS FOR RN. HEART SOUNDS WNL. LUNG SOUNDS CLEAR, BOWEL SOUNDS HEARD IN ALL [address] AND WORKING PROPERLY. PT HAD A REGULAR DIET FOR DINNER AND HAS NO NAUSEA. IV IS INFUSING IN THE RIGHT WRIST AT 125ML/HR. PT HAS A SALINE LOCK IN THE LEFT WRIST. PEDAL PULSES FELT BILATERALLY. PT WAS SERVED ICE WATER AND AN ICE PACK WAS GIVEN FOR PT INCISION.
--- NOTE | 2019-09-18 20:15 | NUR ---
PT DOING WELL. VISITING WITH FAMILY. NO C/0 OF NEEDS AT THIS TIME
[2019-09-18 20:32] LABS: BASOPHILS 0.2 % (0-2); EOSINOPHILS 0.2 % (0-7); HEMATOCRIT 27.5 % (36.0-48.0); HEMOGLOBIN 8.9 g/dL (12-16); IMMATURE GRANULOCYTES 0.3 % (0-5); LYMPHOCYTES 17.5 % (15-50); MCH 27.1 pg (26.0-34.0); MCHC 32.4 g/dL (31.0-37.0); MCV 83.8 fL (80.0-100.0); MEAN PLATELET VOLUME 9.3 fL (7.4-10.4); MONOCYTES 7.4 % (2-11); NEUTROPHILS 74.4 % (40-80); PLATELET COUNT 287 10x3/uL (130-400); RBC 3.28 10x6/uL (4.00-5.40); RDW 15.5 % (11.5-14.5); WBC 13.1 10x3/uL (4.8-10.8)
--- NOTE | 2019-09-18 21:10 | NUR ---
PT CALLED RN TO ROOM. SHE STATES SHE IS CRAMPING IN HER EXTREMITIES AND WOULD LIKE TO STAND UP. HER AND I STOOD HER UP AT THE BEDSIDE. SHE HAD SOME BLEEDING AND WHILE CHANGING HER BED SHE SAT ON THE TOILET. PT WAS CLEANED UP AND PUT BACK TO BED. NO MORE CRAMPING NOTED. NO C/O PAIN. BOTH IV'S PATENT WITH GOOD BLOOD RETURN. FAMILY IS ROOM. TOOK PT 2 CONTAINERS OF APPLE JUICE.
--- NOTE | 2019-09-18 22:15 | NUR ---
PT STATES HER PAIN LEVEL IS AT A 9. SHE HAS NOT BEEN PUSHING HER FLORIST BUTTON. I EXPLAINED THAT SHE HAD TO PUSH THE BUTTON WHEN IT TURNED GREEN FOR HER TO RECEIVE HER PAIN MEDS. HER UNDERSTANDS THAT HE IS NOT TO PUSH THE BUTTON BUT HE CAN HELP PT TO REMEMBER TO PUSH IT. SHE WAS GIVEN TORADOL 30 MG IV DURING THE TIME OF BEING CALLED IN. PT IS TRYING TO REST AT THIS TIME.
--- NOTE | 2019-09-18 22:22 | NUR ---
TORADOL 30 MG GIVEN IV FOR PAIN.
--- NOTE | 2019-09-18 23:00 | NUR ---
PT AWAKE FEEDING HER BABY. SHE STATES SHE HAS VERY LITTLE PAIN AT THIS TIME.
--- NOTE | 2019-09-19 00:45 | NUR ---
PT IS DOING WELL. NO C/O AT THIS TIME. AND SON AT BEDSIDE SLEEPING. PT IS ENCOURAGED TO REST WHILE BABY IN THE NURSERY.
[2019-09-19 02:42] VITALS: BP 120/78
[2019-09-19 04:29] VITALS: BP 124/82
--- NOTE | 2019-09-19 04:34 | NUR ---
PT IS SITTING UP IN BED HOLDING HER BABY AND TALKING ON THE PHONE. SHE IS STILL PUSHING HER INFORMATION SYSTEMS ADMINISTRATOR BUTTON FOR PAIN. FUNDUS IS FIRM. PT WAS CLEANED WITH WARM WASH CLOTHES AND A NEW PAD APPLIED. SHE HAS MOD AMT OF BLEEDING. CONROY BAG WAS DRAINED WITH 800ML DARK URINE. PT WAS ENCOURAGED TO DRINK MUCH SHE COULD. SHE WAS SERVED A LARGE GLASS OF ICE WATER.
[2019-09-19 05:08] LABS: BASOPHILS 0.1 % (0-2); EOSINOPHILS 0.2 % (0-7); HEMATOCRIT 25.9 % (36.0-48.0); HEMOGLOBIN 8.5 g/dL (12-16); IMMATURE GRANULOCYTES 0.2 % (0-5); LYMPHOCYTES 17.5 % (15-50); MCH 27.4 pg (26.0-34.0); MCHC 32.8 g/dL (31.0-37.0); MCV 83.5 fL (80.0-100.0); MEAN PLATELET VOLUME 8.9 fL (7.4-10.4); MONOCYTES 11.1 % (2-11); NEUTROPHILS 70.9 % (40-80); RDW 15.5 % (11.5-14.5)
[2019-09-19 05:25] LABS: PLATELET COUNT 227 10x3/uL (130-400)
--- NOTE | 2019-09-19 05:50 | NUR ---
PT IS RESTING QUIETLY. NEW BAG OF NS WITH PIT HUNG. BABY IS IN THE ROOM ALONG WITH HER .
[2019-09-19 07:13] LABS: RAPID PLASMA REAGIN Non Reactive (Non Reactive)
[2019-09-19 08:15] VITALS: BP 120/83
--- NOTE | 2019-09-19 08:15 | NUR ---
PT RESTING IN BED, BABY AT BEDSIDE. SIGNIFICANT OTHER AT BEDSIDE. PT REPORTS PAIN 8/10 AT THIS TIME. DILAUDID MILL ATTENDANT INTACT AND USED AT THIS TIME. SALINE LOC TO LEFT HAND, SITE WITHOUT REDNESS OR EDEMA. IV TO RIGHT WRIST WITH NS w/ 20U PITOCIN INFUSING AT 125ML/HR PER PUMP. SITE WITHOUT REDNESS OR EDEMA. F/C PATENT TO GRAVITY. BIKINI INCISION WITH SUTURES INTACT. EDGES WELL APPROXIMATED. NO DRAINAGE NOTED. FUNDUS FIRM. 2 BELOW UMBILICUS. SMALL LOCHIA NOTED. DENIES FURTHER NEEDS. AT THIS TIME. CL WITHIN REACH. ENCOURAGED TO CALL WITH NEEDS. CONTINUE POC
--- NOTE | 2019-09-19 09:30 | NUR ---
PT IV SALINE LOCKED PER MD ORDERS. FLUSHED WITH SALINE. EASILY FLUSHES. SITE WITHOUT REDNESS OR EDEMA. DISSCUSSED OTHER PAIN MEDICATION OPTIONS WITH PT. PT VOICES UNDERSTANDING. F/C DISCONTINUED. 10CC SALINE REMOVED FROM BULB, CATH INTACT. PT SHRAVAN WELL. DENIES FURTHER NEEDS AT THIS TIME. CL WITHIN REACH. ENCOURAGED TO CALL WITH NEEDS.
[2019-09-19 11:24] VITALS: BP 112/70
[2019-09-19 17:41] VITALS: BP 122/77
--- NOTE | 2019-09-19 18:10 | NUR ---
PATIENT REQUESTING PAIN MEDICATION. RESTING IN BED WITH BABY ON CHEST. NORCO GIVEN.
--- NOTE | 2019-09-19 19:14 | NUR ---
RECEIVED SHIFT REPORT FROM DAY SHIFT, INFORMED PT THAT I WILL BE IN SHORTLY TO DO ASSESSMENT, PT VERBALIZES UNDERSTANDING, DENIES NEEDS AT THIS TIME, IN OPEN CRIB CART AND FAMILY AT BEDSIDE
--- NOTE | 2019-09-19 19:40 | NUR ---
ASSESSMENT PER FLOW SHEET, VS OBTAINED, SALINE LOCK IN RIGHT WRIST INTACT WITH NO REDNESS OR EDEMA, FF, ML, U/1, PT REPORTS LITE BLEEDING WITH NO CLOTS, BIKINI INC WITH SUTURES CDI WITH NO DRAINAGE NOTED, PT INST ON AND VERBALIZES UNDERSTANDING OF INC CARE, PT REPORTS FLATUS, NO BM AND VOIDING WITH NO DIFFICULTY, PT RATES INC PAIN 04/09, PT REQUESTS TO TAKE A SHOWER, INFORMED PT THAT I WILL GET LINENS TOGETHER
[2019-09-19 20:00] VITALS: BP 115/76
--- NOTE | 2019-09-19 20:00 | NUR ---
SALINE LOCK WRAPPED, LINENS, DI PAD, PANTIES, AND CLEAN GOWN PROVIDED IN BR, PT INST TO USE CALL LIGHT FOR ANY ASSISTANCE, PT VERBALIZES UNDERSTANDING, COMPLETE BEDDING CHANGED AT THIS TIME
--- NOTE | 2019-09-19 21:10 | NUR ---
PT VISITING WITH FAMILY AND FRIENDS, FAMILY MEMBER HOLDING , ADM SHARRI PER MD ORDERS, SEE EMAR, PT REQUESTED AND SERVED FRESH H20 AND GRAPE JUICE TO PT'S OTHER CHILD, PT DENIES FURTHER NEEDS
--- NOTE | 2019-09-19 22:00 | NUR ---
PT TO NSY, GAIT STEADY, WITH DARRIUS GRAY RN, AND IN OPEN CRIB CART TO GIVE A BATH
--- NOTE | 2019-09-19 22:31 | NUR ---
BEDDING PROVIDED TO S/O AND CHILD, PT UP IN BR AT THIS TIME
--- NOTE | 2019-09-19 22:31 | NUR ---
S/O AT CLOTHING WORKER, REQUESTED AND PROVIDED BEDDING
--- NOTE | 2019-09-19 22:43 | NUR ---
PT BACK TO ROOM, C/O INC PAIN, ADM NORCO PER MD ORDERS, SEE EMAR, ATTEMPTED TO FLUSH SALINE LOCK WITH NO SUCCESS, SALINE LOCK REMOVED, TIP INTACT, PRESSURE HELD, BANDAID APPLIED, DENIES FURTHER NEEDS AT THIS TIME
--- NOTE | 2019-09-19 23:30 | NUR ---
PT AMB, GAIT STEADY, TO NSY, REPORTS "PAIN IS OK", DENIES NEEDS
--- NOTE | 2019-09-19 23:35 | NUR ---
PT BACK TO ROOM WITH VIA OPEN CRIB CART
[2019-09-20 00:28] VITALS: BP 97/67
--- NOTE | 2019-09-20 00:30 | NUR ---
PT AWAKE, FOB HOLDING , VS OBTAINED, PT DENIES NEEDS AT THIS TIME
[2019-09-20 03:42] VITALS: BP 113/78
--- NOTE | 2019-09-20 03:42 | NUR ---
PT AWAKE, DROWSY, VS OBTAINED, ADM MOTRIN PER MD ORDERS, SEE EMAR, TO NSY VIA OPEN CRIB CART, PT DENIES FURTHER NEEDS, FOB AND OTHER CHILD ASLEEP AT BEDSIDE
--- NOTE | 2019-09-20 04:30 | NUR ---
PT RESTING WITH EYES CLOSED, RESP QUIET, NO DISTRESS NOTED, LEFT UNDISTURBED AT THIS TIME, FOB AND OTHER CHILD ASLEEP AT BEDSIDE
--- NOTE | 2019-09-20 05:47 | NUR ---
PT AMB,GAIT STEADY, TO NSY, PT OBTAINS INFANT VIA OPEN CRIB CART, AND BACK TO ROOM, DENIES NEEDS AT THIS TIME
--- NOTE | 2019-09-20 08:35 | NUR ---
PT RESTING IN BED. NO ACUTE DISTRESS NOTED AT THIS TIME. REPORTS PAIN 7/10 AT THIS TIME. EDUCATED PT ON NEXT TIME PAIN MEDICATION COULD BE ADMINISTERED PER MD ORDERS. PT VOICES UNDERSTANDING. PT DENIES BM, BUT DOES VOICE PASSING GAS. FUNDUS FIRM 2 BELOW UMBILICUS, SCANT LOCHIA. INCISION TO BIKINI LINE WITH SUTURES INTACT. EDGES WELL APPROXIMATED. WITHOUT REDNESS. SEROUS DRAINAGE WITH SMALL AMOUNT OF RED DRAINAGE NOTED AT THIS TIME. ABD PAD PLACED TO INCISION SITE TO ABSORB DRAINAGE. DENIES FURTHER NEEDS AT THIS TIME. CL WITHIN REACH. CONTINUE POC. ENCOURAGED TO CALL WITH NEEDS.
[2019-09-20 09:20] VITALS: BP 115/80
--- NOTE | 2019-09-20 10:05 | NUR ---
PT AMBULATED TO DESK, ASKING STAFF ABOUT AMBULATING IN HALLWAY. ENCOURAGED PT TO AMBULATE AT THIS TIME. PT VOICES ANXIETY AND BEING "STRESSED OUT" SHE DISCUSSED CONCERNS BY HOSPITAL STAFF REGARDING AND ITS AFFECT ON BEING ABLE TO DISCHARGE HOME. PT IS TEARFUL, BUT VOICES AGGRAVATION DUE TO POLICY OF HOSPITAL.
[2019-09-20 12:18] VITALS: BP 121/74
--- NOTE | 2019-09-20 12:19 | NUR ---
RESTING IN BED WITH FAMILY AT BEDSIDE. HAS AMBULATED IN HALLWAYS SEVERAL TIMES THIS MORNING WITHOUT ASSISTANCE. STATES PAIN IS BETTER. NOW A 6 FOLLOWING NORCO ADMINISTRATION.
--- NOTE | 2019-09-20 13:44 | NUR ---
DR. MEHTA PAGED TO INQUIRE ABOUT DISCHARGING PATIENT. ORDERS RECEIVED TO DISCHARGE HOME.
[2019-09-20] MEDS ORDERED: HYDROCODON-ACE1 EA10 PO (14:21)
[2019-09-20] MEDS ORDERED: IBUPROFEN600 MG PO (14:23)
--- NOTE | 2019-09-20 15:05 | NUR ---
DISCHARGE TEACHING COMPLETED WITH PATIENT. FOLLOW-UP APPOINTMENT INFORMATION GIVEN FOR 09.25.19 @ [address] MEHTA. PRESCRIPTIONS GIVEN WITH INFORMATION SHEETS. STATES UNDERSTANDING. DISCHARGED HOME VIA WHEELCHAIR WITH PERSONAL BELONGINGS TO PRIVATE VEHICLE ACCOMPANIED BY HOSPITAL STAFF.
--- NOTE | 2019-09-21 20:06 | MORECARE ---
CASE MANAGEMENT DISCHARGE SUMMARY PATIENT: KARL SCOTT UNIT: [id number] ADM DATE: 09/18/19 AGE: 24 : [birth year] SEX: F ROOM/BED: D.1223 AUTHOR: CRUZ,DOC PHYSICIAN: REFERRING PHYSICIAN: PALOMA MEHTA MD DATE OF SERVICE: 09/21/19 Discharge Plan Patient Name: KARL SCOTT Facility: [facility]:[place] : 1995 Planned Disposition: Anticipated Discharge Date: Discharge Date: 09/20/2019 Expected LOS: Initial Reviewer: [email or web address] Initial Review Date: 09/18/2019 Generated: 09/21/19 9:05 pm Comments DCP- Discharge Planning Updated by [email or web address]: Ximena Schofield on 09/21/19 7:[address] Late Entry 09/19/19 DC PLAN: MOB states she plans taking home. Address: [address] [place] [address] DC NEEDS: Denies any needs TRANSPORTATION: private vehicle friend will transport to appointments [place]: APPOINTMENT 09/20/19 @ 2:15 MEDICAID: MOB states she has filled out paperwork CAR SEAT: Yes FEEDING PLAN: Plans formula feed. MOB states will use bottled water with formula. BABY NAME: SILVANO COX FOB: MOB: KARL SCOTT WRAPPER DIPPER: EFE CARE: MOB states she had SUPPLIES: MOB states has car seat, DIAPERS, CRIB , AND BOTTLES WATER SOURCE: city HEAT SOURCE: GAS MOB states they have smoke alarms and C02 detectors in the home AIR CONDITIONING: yes CM met with MOB after obtaining verbal consent regarding dc planning/needs. MOB to return to her home with . States home environment is safe. She states in addition to herself, three other people live in the home. MOB states she will have transportation to follow up appointments. MOB states this is her fourth child. MOB states that she does have custody of her other children. Ages are 6 year old twins and 3 yr old all boys. MOB states there are no pets, smoking, drugs or alcohol use in the home. MOB states that she plans on finding employment after recovering from delivery. MOB states that she will have family to care for children while she is working. CM spoke to CUBA regarding positive drug screen on her for THC. CUBA states that she was having problems with Nausea and vomiting and tried marijuana to see if it would help. CUBA states the reglan wasn't helping. CM explained that DHS would be out to visit with her d/t pos drug screen. Denies any other discharge needs at this time. CM will continue to follow and assist as needed with dc planning/needs. Patient Name: KARL SCOTT Page [id number] at 2006 All edits/amendments must be made on the electronic document DICTATION DATE: 09/21/192004 CAR BODY MECHANIC: CYNTHIA 09/21/192004 RPT#: [id number] DC DATE:09/20/19 STATUS: DIS IN [place] [id number] [place] [address] END OF REPORT
== END 2019-09-20 15:11 | disposition home or self-care (01) | DRG 786 ==
LOC: D.LDO 10:42 → D.LD 13:02 → D.WS 13:02
PROVIDERS: ADMIT Obstetrics & Gynecology; ATTEND Obstetrics & Gynecology
PROC: 10D00Z1 Extraction of Products of Conception, Low, Open Approach (ICD-10-PCS; principal; 2019-09-18 13:30)
DX: O99.02 Anemia complicating childbirth (principal); O60.14X0 Preterm labor third trimester with preterm delivery third trimester, not applicable or unspecified; O10.92 Unspecified pre-existing hypertension complicating childbirth; D64.9 Anemia, unspecified; Z3A.34 34 weeks gestation of pregnancy; Z37.0 Single live birth; O34.219 Maternal care for unspecified type scar from previous cesarean delivery; Z87.891 Personal history of nicotine dependence

== ENCOUNTER 2019-09-22 14:33 | Emergency (ER) | payer MEDICAID ==
[~2019-09-22] VITALS: Ht 162.6 cm; Wt 86.4 kg
[~2019-09-22 14:33] MED LIST changes: +HYDROCODON-ACE1 EA10 PO; +IBUPROFEN600 MG PO; +REGLAN10 MG PO
[2019-09-22 14:39] VITALS: Ht 162.6 cm; Wt 86.4 kg
[2019-09-22] MEDS ORDERED: ZOFRAN8 MG PO (16:59)
[2019-09-22 17:21] VITALS: BP 125/74
== END 2019-09-22 17:22 | disposition home or self-care (01) ==
LOC: D.ER 14:33
DX: N99.842 Postprocedural seroma of a genitourinary system organ or structure following a genitourinary system procedure (principal); Y83.9 Surgical procedure, unspecified as the cause of abnormal reaction of the patient, or of later complication, without mention of misadventure at the time of the procedure; Y76.3 Surgical instruments, materials and obstetric and gynecological devices (including sutures) associated with adverse incidents; Y92.9 Unspecified place or not applicable

== ENCOUNTER 2019-09-29 18:58 | Emergency (ER) | payer MEDICAID ==
[~2019-09-29] VITALS: Ht 162.6 cm; Wt 99.3 kg
[~2019-09-29 18:58] MED LIST changes: +ZOFRAN8 MG PO
[2019-09-29 19:37] VITALS: Ht 162.6 cm; Wt 99.3 kg
[2019-09-29 19:54] LABS: BASOPHILS 0.3 % (0-2); EOSINOPHILS 1.9 % (0-7); HEMATOCRIT 31.6 % (36.0-48.0); HEMOGLOBIN 10.2 g/dL (12-16); IMMATURE GRANULOCYTES 0.4 % (0-5); LYMPHOCYTES 38.3 % (15-50); MCH 27.1 pg (26.0-34.0); MCHC 32.3 g/dL (31.0-37.0); MONOCYTES 8.2 % (2-11); NEUTROPHILS 50.9 % (40-80); PLATELET COUNT 266 10x3/uL (130-400); RBC 3.76 10x6/uL (4.00-5.40); RDW 15.3 % (11.5-14.5); WBC 7.2 10x3/uL (4.8-10.8)
[2019-09-29 20:03] LABS: CALC OSMOLALITY 276 mosm/kg (275-300); CALCIUM 9.1 mg/dL (8.5-10.1); CARBON DIOXIDE 25.7 mmol/L (21.0-32.0); CHLORIDE - SERUM 108 mmol/L (98-107); CREATININE - SERUM 0.9 mg/dL (0.6-1.3); GLUCOSE 88 mg/dL (74-106); POTASSIUM - SERUM 3.6 mmol/L (3.5-5.1); SODIUM 140 mmol/L (136-145); UREA NITROGEN 10 mg/dL (7-18); eGFR NON AFRICAN AMERICAN 80 mL/min (90-120)
[2019-09-29 20:16] LABS: ALBUMIN 2.7 g/dL (3.4-5.0); ALKALINE PHOSPHATASE 88 U/L (46-116); ALT (SGPT) 15 U/L (10-68); BILIRUBIN - TOTAL 0.36 mg/dL (0.2-1.3); PRO BNP 460 pg/mL (0-125); PROTEIN - SERUM 6.8 g/dL (6.4-8.2)
[2019-09-29 20:19] LABS: APPEARANCE CLEAR (CLEAR); BILIRUBIN NEGATIVE (NEGATIVE); COLOR YELLOW (YELLOW); GLUCOSE NEGATIVE (NEGATIVE); KETONE NEGATIVE (NEGATIVE); NITRITE NEGATIVE (NEGATIVE); PROTEIN TRACE mg/dL (NEGATIVE); SPECIFIC GRAVITY 1.015 (1.005-1.020); UROBILINOGEN NORMAL (NORMAL)
[2019-09-29 20:20] LABS: BACTERIA FEW /hpf (NEGATIVE); EPITHELIAL CELLS 0-5 /hpf (0-5); RED CELLS - URINE 0-5 /hpf (0-5)
[2019-09-29 20:21] LABS: MUCUS <1+ /lpf (NONE SEEN)
[2019-09-29] MEDS ORDERED: CLEOCIN HCL300 MG PO (21:42)
[2019-09-29] MEDS ORDERED: HYDROCODON-ACE1 EA10 PO (21:42)
[2019-09-29] MEDS ORDERED: MACROBID100 MG PO (21:42)
[2019-09-29 23:25] VITALS: BP 153/97
== END 2019-09-29 23:25 | disposition home or self-care (01) ==
LOC: D.ER 18:58
PROVIDERS: Emergency Medicine; Family Medicine
DX: O86.4 Pyrexia of unknown origin following delivery (principal); A59.9 Trichomoniasis, unspecified; N39.0 Urinary tract infection, site not specified; I10 Essential (primary) hypertension

== ENCOUNTER 2020-02-15 23:54 | Emergency (ER) | payer MEDICAID ==
[~2020-02-15] VITALS: Ht 162.6 cm; Wt 102.3 kg
[~2020-02-15 23:54] MED LIST changes: +CLEOCIN HCL300 MG PO; +DICLOFENAC SODI50 MG PO; +VIBRAMYCIN 100100 MG PO; +ZOFRAN ODT4 MG/UDTAB PO
[2020-02-15 23:57] VITALS: Ht 162.6 cm; Wt 102.3 kg
[2020-02-16 00:19] LABS: BASOPHILS 0.3 % (0-2); HEMATOCRIT 36.6 % (36.0-48.0); HEMOGLOBIN 11.5 g/dL (12-16); IMMATURE GRANULOCYTES 0.2 % (0-5); LYMPHOCYTES 28.7 % (15-50); MCH 25.5 pg (26.0-34.0); MCHC 31.4 g/dL (31.0-37.0); MCV 81.2 fL (80.0-100.0); MEAN PLATELET VOLUME 9.4 fL (7.4-10.4); MONOCYTES 7.4 % (2-11); NEUTROPHILS 62.4 % (40-80); PLATELET COUNT 276 10x3/uL (130-400); RBC 4.51 10x6/uL (4.00-5.40); RDW 15.7 % (11.5-14.5); WBC 9.8 10x3/uL (4.8-10.8)
[2020-02-16 00:30] LABS: CALC OSMOLALITY 280 mosm/kg (275-300); CALCIUM 8.9 mg/dL (8.5-10.1); CHLORIDE - SERUM 104 mmol/L (98-107); CREATININE - SERUM 0.9 mg/dL (0.6-1.3); GLUCOSE 114 mg/dL (74-106); POTASSIUM - SERUM 3.6 mmol/L (3.5-5.1); SODIUM 139 mmol/L (136-145); UREA NITROGEN 17 mg/dL (7-18); eGFR NON AFRICAN AMERICAN 80 mL/min (90-120)
[2020-02-16 00:43] LABS: ALBUMIN 3.2 g/dL (3.4-5.0); ALKALINE PHOSPHATASE 61 U/L (30-120); ALT (SGPT) 28 U/L (10-68); BILIRUBIN - TOTAL 0.22 mg/dL (0.2-1.3); PROTEIN - SERUM 7.4 g/dL (6.4-8.2)
[2020-02-16 01:04] LABS: BACTERIA MANY /hpf (NEGATIVE); BILIRUBIN NEGATIVE (NEGATIVE); GLUCOSE NEGATIVE (NEGATIVE); HCG URINE NEGATIVE (NEGATIVE); KETONE NEGATIVE (NEGATIVE); NITRITE NEGATIVE (NEGATIVE); SPECIFIC GRAVITY 1.015 (1.005-1.020); UROBILINOGEN NORMAL (NORMAL); WHITE CELLS - URINE >50 /hpf (NEGATIVE)
[2020-02-16 01:09] LABS: UDS - AMPHET POSITIVE QUAL (NEGATIVE); UDS - BARB NEGATIVE QUAL (NEGATIVE); UDS - BENZO NEGATIVE QUAL (NEGATIVE); UDS - COCAINE NEGATIVE QUAL (NEGATIVE); UDS - OPIATE NEGATIVE QUAL (NEGATIVE); UDS - PCP NEGATIVE QUAL (NEGATIVE); UDS - THC POSITIVE QUAL (NEGATIVE)
[2020-02-16] MEDS ORDERED: MACROBID100 MG PO (01:15)
[2020-02-16 02:21] VITALS: BP 123/78
== END 2020-02-16 02:25 | disposition home or self-care (01) ==
LOC: D.ER 23:54
PROVIDERS: Family Medicine
DX: S02.2XXA Fracture of nasal bones, initial encounter for closed fracture (principal); Y09 Assault by unspecified means; Y93.9 Activity, unspecified; Y92.9 Unspecified place or not applicable; N39.0 Urinary tract infection, site not specified; I10 Essential (primary) hypertension; R51 Headache; R42 Dizziness and giddiness

== ENCOUNTER 2020-06-18 10:39 | Emergency (ER) | payer MEDICAID ==
[~2020-06-18] VITALS: Ht 162.6 cm; Wt 88.6 kg
[2020-06-18 10:41] VITALS: BP 114/78; Ht 162.6 cm; Wt 88.6 kg
[2020-06-18 11:22] LABS: CALC OSMOLALITY 269 mosm/kg (275-300); CALCIUM 8.7 mg/dL (8.5-10.1); CARBON DIOXIDE 23.6 mmol/L (21.0-32.0); CHLORIDE - SERUM 105 mmol/L (98-107); CREATININE - SERUM 0.7 mg/dL (0.6-1.3); GLUCOSE 109 mg/dL (74-106); POTASSIUM - SERUM 3.7 mmol/L (3.5-5.1); SODIUM 135 mmol/L (136-145); UREA NITROGEN 10 mg/dL (7-18); eGFR NON AFRICAN AMERICAN > 90 mL/min (90-120)
[2020-06-18 11:28] LABS: ALKALINE PHOSPHATASE 61 U/L (30-120); ALT (SGPT) 20 U/L (10-68); PROTEIN - SERUM 7.2 g/dL (6.4-8.2)
[2020-06-18 11:31] LABS: HCG URINE POSITIVE (NEGATIVE)
[2020-06-18 11:34] LABS: BASOPHILS 0.6 % (0-2); EOSINOPHILS 2.8 % (0-7); HEMOGLOBIN 11.8 g/dL (12-16); IMMATURE GRANULOCYTES 0.1 % (0-5); LYMPHOCYTES 31.2 % (15-50); MCH 26.5 pg (26.0-34.0); MCHC 32.8 g/dL (31.0-37.0); MCV 80.7 fL (80.0-100.0); MEAN PLATELET VOLUME 9.2 fL (7.4-10.4); MONOCYTES 8.2 % (2-11); NEUTROPHILS 57.1 % (40-80); PLATELET COUNT 318 10x3/uL (130-400); RBC 4.46 10x6/uL (4.00-5.40); RDW 15.8 % (11.5-14.5); WBC 7.2 10x3/uL (4.8-10.8)
[2020-06-18 11:49] LABS: BILIRUBIN NEGATIVE (NEGATIVE); GLUCOSE NEGATIVE (NEGATIVE); KETONE NEGATIVE (NEGATIVE); NITRITE NEGATIVE (NEGATIVE); UROBILINOGEN NORMAL (NORMAL)
== END 2020-06-18 13:06 | disposition home or self-care (01) ==
LOC: D.ER 10:39
PROVIDERS: Family Medicine
DX: O26.899 Other specified pregnancy related conditions, unspecified trimester (principal); R10.2 Pelvic and perineal pain; I10 Essential (primary) hypertension

== ENCOUNTER 2020-06-27 11:00 | Emergency (ER) | payer MEDICAID ==
[~2020-06-27] VITALS: Ht 162.6 cm; Wt 89.1 kg
[2020-06-27 11:07] VITALS: Ht 162.6 cm; Wt 89.1 kg
[2020-06-27 11:46] LABS: BASOPHILS 0.3 % (0-2); EOSINOPHILS 3.2 % (0-7); HEMATOCRIT 36.2 % (36.0-48.0); IMMATURE GRANULOCYTES 0.3 % (0-5); LYMPHOCYTES 37.3 % (15-50); MCH 26.8 pg (26.0-34.0); MCHC 33.1 g/dL (31.0-37.0); MONOCYTES 8.8 % (2-11); NEUTROPHILS 50.1 % (40-80); PLATELET COUNT 307 10x3/uL (130-400); RBC 4.47 10x6/uL (4.00-5.40); RDW 15.9 % (11.5-14.5)
[2020-06-27 11:49] LABS: CALC OSMOLALITY 269 mosm/kg (275-300); CALCIUM 8.9 mg/dL (8.5-10.1); CARBON DIOXIDE 22.7 mmol/L (21.0-32.0); CHLORIDE - SERUM 104 mmol/L (98-107); CREATININE - SERUM 0.7 mg/dL (0.6-1.3); GLUCOSE 94 mg/dL (74-106); POTASSIUM - SERUM 3.8 mmol/L (3.5-5.1); SODIUM 135 mmol/L (136-145); UREA NITROGEN 13 mg/dL (7-18); eGFR NON AFRICAN AMERICAN > 90 mL/min (90-120)
[2020-06-27 11:54] LABS: BILIRUBIN NEGATIVE (NEGATIVE); KETONE NEGATIVE (NEGATIVE); NITRITE NEGATIVE (NEGATIVE)
[2020-06-27 11:56] LABS: BACTERIA MODERATE /hpf (NONE SEEN); RED CELLS - URINE 0-5 /hpf (0-5)
[2020-06-27 12:18] LABS: HCG - QUANTITATIVE (MATERNAL) 26564 mIU/mL
[2020-06-27] MEDS ORDERED: MACROBID100 MG PO (12:59)
[2020-06-27 14:30] VITALS: BP 106/70
== END 2020-06-27 14:32 | disposition home or self-care (01) ==
LOC: D.ER 11:00
PROVIDERS: Emergency Medicine
DX: O26.899 Other specified pregnancy related conditions, unspecified trimester (principal); N30.00 Acute cystitis without hematuria; O20.0 Threatened abortion; I10 Essential (primary) hypertension

== ENCOUNTER 2020-07-04 13:28 | Emergency (ER) | payer MEDICAID ==
[2020-06-27 11:07] VITALS: Ht 162.6 cm; Wt 95.5 kg
[~2020-07-04] VITALS: Ht 162.6 cm; Wt 95.5 kg
[2020-07-04 14:31] LABS: CALC OSMOLALITY 271 mosm/kg (275-300); CALCIUM 8.7 mg/dL (8.5-10.1); CARBON DIOXIDE 24.6 mmol/L (21.0-32.0); CHLORIDE - SERUM 106 mmol/L (98-107); CREATININE - SERUM 0.7 mg/dL (0.6-1.3); GLUCOSE 90 mg/dL (74-106); POTASSIUM - SERUM 3.6 mmol/L (3.5-5.1); SODIUM 137 mmol/L (136-145); UREA NITROGEN 7 mg/dL (7-18); eGFR NON AFRICAN AMERICAN > 90 mL/min (90-120)
[2020-07-04 14:49] LABS: BILIRUBIN NEGATIVE (NEGATIVE); KETONE NEGATIVE (NEGATIVE); NITRITE NEGATIVE (NEGATIVE); UROBILINOGEN NORMAL (NORMAL)
[2020-07-04 14:50] LABS: EPITHELIAL CELLS 0-5 /hpf (0-5); RED CELLS - URINE 0-5 /hpf (0-5)
[2020-07-04 14:51] LABS: BACTERIA MANY /hpf (NONE SEEN)
[2020-07-04 14:52] LABS: BASOPHILS 0.7 % (0-2); EOSINOPHILS 1.2 % (0-7); HEMATOCRIT 34.2 % (36.0-48.0); HEMOGLOBIN 11.3 g/dL (12-16); IMMATURE GRANULOCYTES 0.2 % (0-5); LYMPHOCYTES 45.2 % (15-50); MCH 26.7 pg (26.0-34.0); MCV 80.9 fL (80.0-100.0); MEAN PLATELET VOLUME 9.3 fL (7.4-10.4); MONOCYTES 9.9 % (2-11); NEUTROPHILS 42.8 % (40-80); PLATELET COUNT 271 10x3/uL (130-400); RBC 4.23 10x6/uL (4.00-5.40); RDW 16.3 % (11.5-14.5); WBC 5.8 10x3/uL (4.8-10.8)
[2020-07-04 15:15] LABS: HCG URINE POSITIVE (NEGATIVE)
[2020-07-04] MEDS ORDERED: FLAGYL500 MG PO (17:19)
[2020-07-04] MEDS ORDERED: TYLENOL W/CODEI1 TAB PO (17:19)
[2020-07-04] MEDS ORDERED: MACROBID100 MG PO (17:19)
[2020-07-04 18:24] VITALS: BP 102/60
== END 2020-07-04 18:24 | disposition home or self-care (01) ==
LOC: D.ER 13:28
PROVIDERS: Emergency Medicine
DX: O20.0 Threatened abortion (principal); Z3A.01 Less than 8 weeks gestation of pregnancy; O23.11 Infections of bladder in pregnancy, first trimester; A59.9 Trichomoniasis, unspecified

== ENCOUNTER 2020-07-09 11:59 | Day surgery (SDC) | payer MEDICAID ==
[~2020-07-09] VITALS: Ht 162.6 cm; Wt 89.8 kg
--- NOTE | ~2020-07-09 | OP ---
PATIENT NAME: KARL SCOTT MEDICAL RECORD: [id number] :[birth year] LOCATION:.FORMERLY [facility] ADMISSION DATE: SURGEON: KIERAN CHAVIS MD DATE OF OPERATION: 07/09/2020 PREOPERATIVE DIAGNOSIS: Inevitable . POSTOPERATIVE DIAGNOSIS: Inevitable . PROCEDURE: Suction D&E with the curettage and dilation of the cervix. SURGEON: Kieran Chavis MD HOUSEKEEPING ASSOCIATE: NAVYA Carolina. ANESTHESIOLOGIST: Morgan Laura MD ANESTHETIC: General. FINDINGS: Vaginal vulva and vaginal vaults were unremarkable. The cervix is dilated to accept a #12 Hanks dilator. At the time of suction curettage, a moderate tissue returned. SPECIMENS REMOVED: Products of conception. SPECIMEN DISPOSITION: Pathology. ESTIMATED BLOOD LOSS: Minimal. FLUIDS: 600 cc lactated Ringer's. URINE OUTPUT: Quantity sufficient void prior to this procedure. COMPLICATIONS: None. DRAINS: Cervical laceration with repair. INDICATIONS: The patient is a 25-year-old female with a known IUP diagnosed with ultrasound. The patient has irregular gestational sac and has had cramping and bleeding for the last several days. The patient presents to clinic with increased cramping and bleeding. DESCRIPTION OF PROCEDURE: After informed consent was assured, the patient was taken to the operating room where anesthetic was obtained. The patient was placed in Yellofin stirrups and prepped and draped. A speculum was introduced in the vagina and the cervix visualized. The single tooth tenaculum was used to grasp the cervix. The cervix was noted to be dilated easily to accommodate a #12 Hanks dilator. A 13-14 dilator was used and upon meeting resistance, the patient moves tearing the cervix. The single-tooth tenaculum was reapplied and after anesthetic was found to be adequate. Cervix was continued to be dilated until an 8 curved suction curette was able to pass into the os without effort. This suction curette was passed to the fundus and suction activated removing clot and products of conception. After several passes #2 curette was used to obtain a good cry throughout the entire uterus. A single pass with the suction device removed all remaining clot and debris. Single tooth tenaculum was OPERATIVE REPORT [id number] KARL SCOTT removed and bleeding was noted from the site of laceration on the patient's right side. A 2-0 [id number] stitches applied here for hemostasis. Silver nitrate was also utilized to stop bleeding at the puncture site. Sponge, lap, needle counts were correct times 2. The patient awakened and went to the recovery room in stable condition. TRANSINT:[id number] Voice Confirmation ID: [id number] DOCUMENT ID: [id number] KIERAN CHAVIS MD CC: [id number] DICTATION DATE: 07/09/20 1428 LABORER DRYING DEPARTMENT: 07/09/[address] [place] [address] 07/09/[address] [address]
[~2020-07-09 11:59] MED LIST changes: +TYLENOL W/CODEI1 TAB PO
[2020-07-09 12:34] LABS: BASOPHILS 0.3 % (0-2); EOSINOPHILS 1.7 % (0-7); HEMATOCRIT 36.9 % (36.0-48.0); HEMOGLOBIN 12.2 g/dL (12-16); IMMATURE GRANULOCYTES 0.2 % (0-5); LYMPHOCYTES 41.8 % (15-50); MCH 26.9 pg (26.0-34.0); MCHC 33.1 g/dL (31.0-37.0); MCV 81.5 fL (80.0-100.0); MONOCYTES 8.7 % (2-11); NEUTROPHILS 47.3 % (40-80); PLATELET COUNT 267 10x3/uL (130-400); RBC 4.53 10x6/uL (4.00-5.40); RDW 16.4 % (11.5-14.5); WBC 6.6 10x3/uL (4.8-10.8)
[2020-07-09 13:02] VITALS: BP 100/63; Ht 162.6 cm; Wt 89.8 kg
--- NOTE | 2020-07-09 16:00 | NUR ---
1505 ARRIVED TO ROOM WITH NURSE FROM PACU. AWAKE AND TALKING. APPEARS TO HAVE SOME CRAMPING. NO VAGINAL DISCHARGE AND NO DI PAD IN PLACE. 1525 MEDICATED FOR PAIN BUT REFUSED BECAUSE SHE STATED SHE HAS AN ENTIRE BOTTLE PREOP AND IT DOESNT WORK. REFUSED MEDICATION. RX FOR CYTOTEC AND ORDER FOR ONE NOW. ORDERED AND GIVEN AFTER TALKING TO DR CHAVIS NURSE. MEDICATED IV WITH TORDOL 30MG IV WITH SOME GOOD RESULTS. 1545 RECIEVED JELLO TO EAT AND DR CHAVIS CALLED BECAUSE SHE WANTED TO STAY IF SHE COULDNT GET PAIN UNDER CONTROL. ORDERS GIVEN FROM DR CHAVIS TO GIVE NORCO 10 AND IF IT WORKED TO CALL HIM BACK. 1600 MEDICATED PO NORCO 10 AND EATING ANOTHER JELLO. SON IN PARKING LOT WAITING
--- NOTE | 2020-07-09 16:22 | NUR ---
1620 DR CHAVIS CALLED AND LEFT A MESSAGE. PT HAS NO PAIN NOW. IVF GIVEN. SMALL AMT OF BLOOD NOTED FROM VAGINA.
--- NOTE | 2020-07-09 16:53 | NUR ---
1645 ASSISTED TO BATHROOM AND VOIDED WITH SOME BLOOD NOTED IN TOILET. NO CLOTS
--- NOTE | 2020-07-09 17:20 | NUR ---
1700 IV REMOVED AND NEW RX GIVEN TO PT FROM DR CHAVIS. VS STABLE AND PT INSTRUCTIONS GIVEN
== END 2020-07-09 17:15 | disposition home or self-care (01) ==
LOC: D.OPS 11:59
PROVIDERS: ATTEND Obstetrics & Gynecology
DX: O03.9 Complete or unspecified spontaneous abortion without complication (principal)

== ENCOUNTER 2020-07-20 04:59 | Observation (INO) | payer MEDICAID ==
[~2020-07-20] VITALS: Ht 162.6 cm; Wt 104.5 kg
--- NOTE | 2020-07-20 05:30 | NUR ---
PATIENT IN WITH BRIGHT RED VAG BLEEDING WITH CLOTS, HAVING SEVERE ABD PAIN, HAD A D&C DONE 1 WEEK AGO, STATES THE PAIN IS SEVERE WORK HER UP.
[2020-07-20 06:27] LABS: BASOPHILS 0.5 % (0-2); EOSINOPHILS 1.7 % (0-7); HEMATOCRIT 33.4 % (36.0-48.0); HEMOGLOBIN 10.8 g/dL (12-16); IMMATURE GRANULOCYTES 0.2 % (0-5); LYMPHOCYTES 36.4 % (15-50); MCH 26.5 pg (26.0-34.0); MCHC 32.3 g/dL (31.0-37.0); MCV 82.1 fL (80.0-100.0); MEAN PLATELET VOLUME 8.9 fL (7.4-10.4); MONOCYTES 7.7 % (2-11); NEUTROPHILS 53.5 % (40-80); PLATELET COUNT 296 10x3/uL (130-400); RBC 4.07 10x6/uL (4.00-5.40); RDW 16.6 % (11.5-14.5)
[2020-07-20 06:44] LABS: ALBUMIN 2.7 g/dL (3.4-5.0); ALKALINE PHOSPHATASE 46 U/L (30-120); ALT (SGPT) 18 U/L (10-68); BILIRUBIN - TOTAL 0.09 mg/dL (0.2-1.3); CALC OSMOLALITY 264 mosm/kg (275-300); CALCIUM 8.8 mg/dL (8.5-10.1); CARBON DIOXIDE 21.8 mmol/L (21.0-32.0); CHLORIDE - SERUM 105 mmol/L (98-107); CREATININE - SERUM 0.6 mg/dL (0.6-1.3); GLUCOSE 122 mg/dL (74-106); PROTEIN - SERUM 6.1 g/dL (6.4-8.2); SODIUM 132 mmol/L (136-145); UREA NITROGEN 9 mg/dL (7-18); eGFR NON AFRICAN AMERICAN > 90 mL/min (90-120)
[2020-07-20 06:48] LABS: INR 0.96 (0.85-1.17); PROTIME 12.8 SECONDS (11.6-15.0)
--- NOTE | 2020-07-20 07:00 | NUR ---
REPORT GIVEN TO LUIS [facility]
--- NOTE | 2020-07-20 07:31 | NUR ---
PT REMOVED FROM BEDPAN, PASSED LARGE CLOT. LINENS CHANGED, WARM BLANKETS PROVIDED. PT DENIES FURTHER NEEDS AT THIS TIME. WILL CONTINUE TO MONITOR. RESPIRATIONS ARE EVEN AND UNLABORED. NO DISTRESS NOTED. COLOR WNL.
[2020-07-20 07:58] VITALS: BP 84/35
--- NOTE | 2020-07-20 08:45 | NUR ---
dr narayan at bedside speaking with patient.
[2020-07-20 10:11] VITALS: BP 91/54
[2020-07-20 10:16] VITALS: Ht 162.6 cm; Wt 104.5 kg
== END 2020-07-20 11:15 | disposition home or self-care (01) ==
LOC: D.ER 04:59 → D.EDHOLD 07:25 → OBSVTIME 07:26 → D.EDHOLD 11:15
PROVIDERS: Family Medicine; ADMIT Obstetrics & Gynecology; ATTEND Obstetrics & Gynecology
DX: R10.2 Pelvic and perineal pain (principal); N39.0 Urinary tract infection, site not specified; N93.9 Abnormal uterine and vaginal bleeding, unspecified; I10 Essential (primary) hypertension; Z98.890 Other specified postprocedural states

== ENCOUNTER 2020-08-10 13:42 | Observation (INO) | payer MEDICAID ==
[~2020-08-10] VITALS: Ht 162.6 cm; Wt 88.2 kg
[2020-08-10 14:21] LABS: BASOPHILS 0.6 % (0-2); EOSINOPHILS 2.5 % (0-7); HEMATOCRIT 30.6 % (36.0-48.0); HEMOGLOBIN 9.9 g/dL (12-16); LYMPHOCYTES 44.6 % (15-50); MCH 26.5 pg (26.0-34.0); MCHC 32.4 g/dL (31.0-37.0); MEAN PLATELET VOLUME 8.7 fL (7.4-10.4); MONOCYTES 7.6 % (2-11); NEUTROPHILS 44.7 % (40-80); PLATELET COUNT 306 10x3/uL (130-400); RBC 3.73 10x6/uL (4.00-5.40); RDW 15.5 % (11.5-14.5); WBC 5.3 10x3/uL (4.8-10.8)
[2020-08-10 14:34] LABS: CALC OSMOLALITY 267 mosm/kg (275-300); CALCIUM 8.6 mg/dL (8.5-10.1); CHLORIDE - SERUM 105 mmol/L (98-107); CREATININE - SERUM 0.7 mg/dL (0.6-1.3); GLUCOSE 94 mg/dL (74-106); SODIUM 135 mmol/L (136-145); UREA NITROGEN 7 mg/dL (7-18); eGFR NON AFRICAN AMERICAN > 90 mL/min (90-120)
[2020-08-10 14:39] LABS: HCG SERUM POSITIVE (NEGATIVE)
[2020-08-10 14:40] LABS: ALKALINE PHOSPHATASE 47 U/L (30-120); ALT (SGPT) 12 U/L (10-68); BILIRUBIN - TOTAL 0.22 mg/dL (0.2-1.3); PROTEIN - SERUM 6.8 g/dL (6.4-8.2)
--- NOTE | 2020-08-10 14:51 | NUR ---
PATIENT SITTING UP ON STRETCHER ON HER CELL PHONE, STATES SHE HAS ABD PAIN 10/10 ON PAIN SCALE.
[2020-08-10 16:00] VITALS: BP 102/57
--- NOTE | 2020-08-10 16:00 | NUR ---
PATIENT ACTIVELY BLEEDING, GONE THRU TWO PADS IN ONE HOUR.
--- NOTE | 2020-08-10 16:00 | NUR ---
CORRECTION, PATIENT HAS GONE THROUGH TWO PADS IN THE TIME SHE HAS BEEN IN THE ED. SPOKE WITH PROVIDER AND HE CONFIRMED THE PATIENT STATED SHE HAS GONE THROUGH TWO PADS IN THE TIME SHE HAS BEEN IN THE ED. PATIENT A+O X3, VITAL SIGNS STABLE.
[2020-08-10 17:34] VITALS: BP 105/67
--- NOTE | 2020-08-10 17:42 | NUR ---
REPORT CALLED TO MARIAM PAIGE RN
--- NOTE | 2020-08-10 18:26 | NUR ---
pt. received via wc to room 1257 from ER. pt. provided with gown and instructed to change into gown and I will be back to get her admitted in a few minutes after I review her orders. pt. verbalizes understanding and denies any questions or concerns at this time.
--- NOTE | 2020-08-10 18:32 | NUR ---
TO CT VIA W/C PER TECH
--- NOTE | 2020-08-10 18:55 | NUR ---
pt. ambulates to nurses desk and inquires "is there anyway i can just sign myself out". Instructed pt. that I am currently giving results to caustic cresylate shift superintendent and reviewing the orders to see what still needs to be done. pt. very agitated and reports "well i have a 9 month old at home and i would just rather be at home if nothing is going to get done". instructed pt. that at this time I have no active orders on her because the CT has not been read in order for Dr. Elliott to put in active orders. pt. still extremely upset and is cursing and griping that nothing has been done for her and she is pissed that she has been sitting up in the ER all day.
--- NOTE | 2020-08-10 18:58 | NUR ---
RN TO ROOM, PT REQUESTING TO GO AMA, RN EXPLAINED IMPORTANCE OF STAYING AND WAITING FOR CT RESULTS. RN CALLED OUT TO NURSES STATION TO SEE IF CT RESULTS WERE IN OR IF DR. MEHTA HAD CALLED UNIT. RESULTS ARE NOT IN AT THIS TIME. PT DECIDES TO WAIT A FEW MINUTES UNTIL RN CONTACTS CT TO SEE HOW LONG WAIT WILL BE.
--- NOTE | 2020-08-10 19:05 | NUR ---
PT TO NURSES STATION IN TEARS REQUESTING TO GO HOME AT THIS TIME. PT MADE AWARE ONCE MORE THE DANGERS OF LEAVING WITH AN UNDIAGNOSED BLEED. PT STATES SHE WILL WAIT A FEW MORE MINUTES TO SEE IF RESULTS COME IN. PT IN TEARS STATING "I HAVE BEEN IN THIS HOSPITAL ALL DAY, I AM TIRED, I LEFT MY KIDS WITH THE POWDER NIPPER AND I JUST WANT TO GO HOME. I JUST CAME TO THE HOSPITAL BECAUSE I WAS CONCERNED THAT I WAS BLEEDING SO MUCH" PT CONSOLED AT THIS TIME.
--- NOTE | 2020-08-10 19:11 | NUR ---
pt. standing at nurses desk requesting to speak with Dr. Elliott regarding her being here and not receiving any care from our nurses since she arrived to the unit.
--- NOTE | 2020-08-10 19:40 | NUR ---
RESULTS OF PT RECIEVED
--- NOTE | 2020-08-10 19:41 | NUR ---
DR. MEHTA PAGED AT THIS TIE.
--- NOTE | 2020-08-10 19:46 | NUR ---
DR. MEHTA RETURNS PAGE AT THIS TIME. DR. MEHTA MADE AWARE OF RESULTS OF CT. DR. MEHTA TO COME TO UNIT TO DISCUSS RESULTS WITH PT.
--- NOTE | 2020-08-10 19:51 | NUR ---
PT TRANSFERRED TO 1273 AT THIS TIME.
--- NOTE | 2020-08-10 20:05 | NUR ---
DR. MEHTA ON UNIT TO PT'S ROOM TO DISCUSS CT RESULTS AND POC.
--- NOTE | 2020-08-10 20:12 | NUR ---
ORDERS FOR PT TO BE NPO AFTER MIDNIGHT, ORDER FOR NORCO 5MG Q4HR PRN FOR PAIN, ORDER FOR LR IV CONTINUOUS 125ML/HR
[2020-08-10 21:24] VITALS: BP 101/70
--- NOTE | 2020-08-10 21:24 | NUR ---
RN AT PT BEDSIDE, 20G IV TO RIGHT HAND STARTED, NS 0.9% INFUSING AT 125ML/HR AT THIS TIME. ADMISSION ASSESSMENT COMPLETED AT THIS TIME. PT STATES PAIN IS 0/10. PT IS SLIGHTLY DROWSY BUT ALERT AND RESPONDING APPROPRIATELY TO ALL QUESTIONS.
[2020-08-10 21:25] VITALS: BP 101/70; BMI 33.3
--- NOTE | 2020-08-10 22:37 | NUR ---
RN TO PT BEDSIDE, PT PROVIDED APPLE JUICE PER REQUEST.
--- NOTE | 2020-08-11 00:49 | NUR ---
RN TO PT BEDSIDE FOR ROUNDING, PT REQUEST AIR TO BE TURNED DOWN. 450ML OF URINE IN URINE HAT. PT DENIES ANY OTHER NEEDS AT THIS TIME. STATES PAIN IS 1-2/10 AND ONLY NOTICED IT WHEN SHE GOT UP TO VOID, DENIES THE NEED FOR ANY INTERVENTIONS AT THIS TIME.
[2020-08-11 01:28] VITALS: BP 93/58
--- NOTE | 2020-08-11 01:56 | NUR ---
RN X2 TO PT BEDSIDE AFTER PT CALLS OUT IN TEARS. UPON ARRIVAL TO BEDSIDE, PT IN SITTING POSITION SREAMING "I JUST PASSED A CLOT AND THEN ALL THIS BLOOD STARTED COMING OUT", PT'S BRIEFS WERE SATURATED IN BLOOD AND BLOOD ON MORE THAN HALF OF THE PERIPAD. PT STATES "IT ALWAYS HURTS SO BAD WHEN I PASS THOSE CLOTS", PT'S FACIAL EXPRESSION WITH A GRIMACE AND GUARDING TO HER ABDOMEN. EXPELLED MASS THE SIZE OF A HALF DOLLAR, PURPLE AND TISSUE LIKE IN FORMATION, NO BLOOD NOTED BEING EXPELLED FROM MASS UNLIKE BLOOD CLOTS.
--- NOTE | 2020-08-11 02:22 | NUR ---
RN TO PT BEDSIDE, PT STATES SHE PASSED ANOTHER CLOT, DI-PAD HAS BLOOD ON MORE THAN HALF ITS LENGTH, A QUARTER SIZED MASS AT CENTER OF BLOOD ON PERIPAD, MASS IS PURPLISH PINK IN COLOR AND MORE TISSUE LIKE IN FORMATION, THIS SPECIMEN AND PREVIOUS SPECIMEN PLACED ON ICE FOR EVALUATION BY MD. VAGINAL AREA CLEANSED WITH BETADINE, NEW PERIPADS GIVEN AT THIS TIME. PT TO CALL OUT IF SHE FEELS LIKE SHE IS PASSING MORE CLOTS.
--- NOTE | 2020-08-11 03:34 | NUR ---
RN TO PT BEDSIDE, PT SLEEPING AT THIS TIME. PT LEFT ASLEEP, NOT AWAKEN.
--- NOTE | 2020-08-11 04:21 | NUR ---
RN TO PT BEDSIDE, PT SLEEPING, NOT AWAKEN
--- NOTE | 2020-08-11 05:28 | NUR ---
RN TO PT BEDSIDE, VSS, PT'S REQUESTS AN ADDITIONAL BLANKET PT PROVIDED WITH ADDITIONAL BLANKET AT THIS TIME, DENIES ANY OTHER NEEDS. BED IN LOWEST POSITION, SIDE RAILS UPX2, CALL LIGHT IN REACH.
[2020-08-11 05:29] VITALS: BP 106/55
[2020-08-11 07:19] VITALS: Ht 162.6 cm; Wt 88.2 kg
[2020-08-11 07:45] VITALS: BP 101/58
--- NOTE | 2020-08-11 07:45 | NUR ---
PT LYING DOWN. EASILY AROUSED TO VERBAL CUES. LUNGS CLEAR BILATERALLY IN ALL LOBES. S1,S2 REGULAR. BOWEL SOUNDS ACTIVE IN ALL 4 QUADRANTS. VSS. SEE FULL ASSESSMENT PER FLOWSHEET. SCD'S PLACED ON BOTH LEGS. IV TO RIGHT HAND INFUSING WITHOUT DIFFICULTY. NO S/S OF INFILTRATION NOTED. COMPLAINS OF ABD CRAMPING 10/10. WILL MEDICATE PER ORDER. DR MEHTA AT BEDSIDE DISCUSSING POC AND ANSWERING QUESTIONS. BED IN LOW POSITION, CALL LIGHT AND PHONE WITHIN REACH.
--- NOTE | 2020-08-11 08:01 | NUR ---
PREOP MEDS GIVEN PER EMAR. NORCO PROVIDED PER PT REQUEST PER PAIN PER EMAR.
--- NOTE | 2020-08-11 08:02 | NUR ---
MEDICAL, ANESTHESIA, AND BLOOD CONSENTS SIGNED.
--- NOTE | 2020-08-11 08:09 | NUR ---
PRE-OP CHECKLIST COMPLETED.
--- NOTE | 2020-08-11 08:16 | NUR ---
OFF UNIT WITH OR STAFF.
[2020-08-11 10:14] VITALS: BP 106/61
--- NOTE | 2020-08-11 10:14 | NUR ---
PT RECEIVED VIA BED TO ROOM 1273 FROM PACU. EASILY AROUSES TO VOICE. C/O ABD CRAMPING 04/09. BREATH SOUNDS CLEAR AND EQUAL. S1,S2 REGULAR. BOWEL SOUNDS ACTIVE IN ALL 4 QUADRANTS. SMALL AMT BRB IN PERIPAD. PERICARE DONE. CHUCKS AND PADS CHANGED. GOWN CHANGED. SCD'S TO BLE. VSS. DENIES NEED FOR ADDITIONAL INTERVENTION FOR PAIN. INSTRUCTED TO CALL USING CALL LIGHT PRIOR TO GETTING OUT OF BED, VERBALIZES UNDERSTANDING. NS TO PUMP AT 125 MLS PER HR PER ORDER TO RT HAND PIV. INFUSING W/O DIFFICULTY. NO SIGNS OF INFILTRATION NOTED. POC DISCUSSED WITH PT. VERBALIZES UNDERSTANDING. BED IN LOW POSITION, CALL LIGHT AND PHONE WITHIN REACH.
--- NOTE | 2020-08-11 10:31 | NUR ---
AA&O X4. SITTING IN HIGH FOWLERS. PT REQUESTING SPRITE. DIET REMAINS NPO AT THIS TIME. DISCUSSED WITH PT AND WILL CONTACT MD FOR FURTHER ORDERS. VAG BLEEDING REMAINS SCANT TO SMALL, BRB NO CLOTS NOTED. VSS. DENIES NEEDS.
--- NOTE | 2020-08-11 10:52 | NUR ---
AWAKE AND ALERT X4. REQUESTING TO EAT. DR MEHTA PAGED WITH IMMEDIATE CALLBACK. PT REPORT GIVEN. ORDERS RECEIVED.
--- NOTE | 2020-08-11 10:55 | NUR ---
PT UPDATED ON POC, SPRITE PROVIDED. DENIES ADDITIONAL NEEDS. WILL CONTINUE TO MONITOR.
--- NOTE | 2020-08-11 11:27 | NUR ---
CALLS VIA CALL LIGHT TO BEDSIDE. STATES SHE NEEDS TO GET UP TO VOID. PT CONTINUES TO REQUEST SOLID FOOD. REINFORCED INSTRUCTION THAT WHEN LAB IS CONFIRMED AND BLOOD COUNT IS STABLE MD WILL BE NOTIFIED AND ORDERS RECEIVED AT THAT TIME. PT ANXIOUS AND CURSING AT NURSE. STATES SHE NO LONGER NEEDS TO VOID. BACK IN BED, REFUSES SCD'S AT THIS TIME. BED IN LOW POSITION. CALL LIGHT IN REACH. WILL NOTIFY MD.
[2020-08-11 11:56] LABS: HEMATOCRIT 27.5 % (36.0-48.0); HEMOGLOBIN 8.7 g/dL (12-16); MCH 26.3 pg (26.0-34.0); MCHC 31.6 g/dL (31.0-37.0); MCV 83.1 fL (80.0-100.0); MEAN PLATELET VOLUME 8.8 fL (7.4-10.4); PLATELET COUNT 280 10x3/uL (130-400); RBC 3.31 10x6/uL (4.00-5.40); RDW 15.6 % (11.5-14.5); WBC 5.5 10x3/uL (4.8-10.8)
--- NOTE | 2020-08-11 12:17 | NUR ---
DR. MEHTA NOTIFIED OF PT BEING UNHAPPY D/T NOT HAVING REGULAR DIET AT THIS TIME AND EDUCATION THAT NURSING STAFF HAD GIVEN PT AND PT REPORTING THAT SHE WANTED TO LEAVE AMA. PER DR. MEHTA REPORT CBC RESULTS TO HIM.
--- NOTE | 2020-08-11 12:33 | NUR ---
DR. MEHTA PAGED WITH IMMEDIATE CALLBACK TO UNIT. CBC RESULTS REVIEWED. ORDERS REC'D.
[2020-08-11 12:42] VITALS: BP 105/55
--- NOTE | 2020-08-11 12:52 | NUR ---
PT STATES PAIN IS 10/10. MEDICATION GIVEN PER EMAR. CRACKERS AND COKE PROVIDED. PT DENIES ANY NEEDS AT THIS TIME.
[2020-08-11] MEDS ORDERED: HYDROCODON-ACE1 EAC7 PO (13:49)
--- NOTE | 2020-08-11 13:50 | NUR ---
[place] IN [place], REPORTS THAT SOMEONE IS HERE TO PICK HER UP. STEADY GAIT NOTED.
--- NOTE | 2020-08-11 13:57 | NUR ---
20 G PIV REMOVED FROM R HAND, TIP INTACT. VERBAL AND WRITTEN D/C INSTRUCTIONS GIVEN, VERBALIZES UNDERSTANDING. REINFORCEMENT GIVEN ON CONTACTING [facility] FOR FOLLOW UP APPT TIME, VERBALIZES UNDERSTANDING. REFUSES W/C, AMB WITH STAFF OFF UNIT TO AWAITING CAR. STEADY GAIT NOTED.
[2020-08-11 14:50] LABS: LYMPHOCYTES 17 % (15-50); MONOCYTES 7 % (2-11); NEUTROPHILS 75 % (40-80); PLATELET ESTIMATE NORMAL
== END 2020-08-11 13:57 | disposition home or self-care (01) ==
LOC: D.ER 13:42 → D.LD 17:49 → OBSVTIME 18:26 → D.LD 19:51
PROVIDERS: Family Medicine; ADMIT Obstetrics & Gynecology; ATTEND Obstetrics & Gynecology
DX: O02.81 Inappropriate change in quantitative human chorionic gonadotropin (hCG) in early pregnancy (principal); O02.0 Blighted ovum and nonhydatidiform mole

== ENCOUNTER 2021-03-10 23:32 | Emergency (ER) | payer MEDICAID ==
[~2021-03-10] VITALS: Ht 162.6 cm; Wt 95.5 kg
[~2021-03-10 23:32] MED LIST changes: +HYDROCODON-ACE1 EAC7 PO; +LEVAQUIN750 MG PO; +MOTRIN600 MG PO; +TAMIFLU75 MG PO; +VISTARIL25 MG PO
[2021-03-10 23:37] VITALS: Ht 162.6 cm; Wt 95.5 kg
[2021-03-11 00:34] LABS: BACTERIA MODERATE HPF (NONE SEEN); BILIRUBIN NEGATIVE (NEGATIVE); KETONE NEGATIVE (NEGATIVE); NITRITE NEGATIVE (NEGATIVE); SQUAMOUS EPITHELIAL 0-5 HPF (0-4); UROBILINOGEN NORMAL mg/dL (< 2); WHITE CELLS - URINE 0-5 HPF (0-4)
[2021-03-11 00:35] LABS: AMORPHOUS SEDIMENT <1+ LPF (NONE SEEN)
[2021-03-11] MEDS ORDERED: DICLOFENAC SODI50 MG PO (00:49)
[2021-03-11 00:57] VITALS: BP 128/87
== END 2021-03-11 00:56 | disposition home or self-care (01) ==
LOC: D.ER 23:32
PROVIDERS: Family Medicine
DX: S20.219A Contusion of unspecified front wall of thorax, initial encounter (principal); I10 Essential (primary) hypertension; Z72.0 Tobacco use; R07.89 Other chest pain; Y04.0XXA Assault by unarmed brawl or fight, initial encounter; Y93.9 Activity, unspecified; Y92.9 Unspecified place or not applicable